=== PATIENT | female | born 1990 | race African-American/Black ===

== ENCOUNTER 2016-12-07 11:20 | Inpatient (IN) | payer MEDICAID ==
[2016-12-07] MEDS ORDERED: Sodium Chloride 0.9% 10 ML Syringe FLUSH PRN (19:33)
[2016-12-07] MEDS ORDERED: Zolpidem 5 MG Tab PO PRN (19:33)
[2016-12-07] MEDS ORDERED: Nalbuphine 20 MG/1 ML Amp IVPUSH PRN (19:33)
[2016-12-07] MEDS ORDERED: Ondansetron 4 MG/2 ML SDV IVPUSH PRN (19:33)
[2016-12-07] MEDS ORDERED: Oxytocin/Lactated Ringers 10 UNIT/1,000 ML BAG IV SCH ×2 (19:45)
[2016-12-07] MEDS ORDERED: Penicillin G Potassium 5 MILLUNITS in Sodium Chloride 0.9% 100 ML IV SCH (19:45)
[2016-12-07] MEDS ORDERED: Misoprostol 25 MCG (1/4 of 100 MCG) Tab ONE (20:50)
[2016-12-07] MEDS: Misoprostol 100 MCG Tab VAG PRN (20:59)
--- NOTE | 2016-12-07 21:25 | PCM.LDHP ---
L&D History of Present Illness - General Date of Service: 12/07/16 Admit Problem/Dx: Patient Status Order with Admit Dx/Problem 12/07/16 19:34 Patient Status [ADT] Routine Admission Diagnosis/Problem Admission Diagnosis/Problem Normal Source of Information: Patient History Limitations: Reports: No Limitations - History of Present Illness Introduction:: Patient is a 26-year-old at 37-4/7 weeks who presents for induction of labor. Had called in to clinic earlier today noting complaints of itching on her soles and palms. This has apparently been present for the last 2 weeks, but patient had not thought anything much of it. Had brought it up to her mother who notified her that she should discuss it with her physician. I called patient earlier this evening and discussed laboratory testing for cholestasis of has a turn around time of about 6 days. If patient is positive recommendations are for delivery between 36 and 37 weeks. As she is already 37-1/2 weeks at this current time and given the risks of IUFD with this underlying diagnosis felt that it was most appropriate to present for induction. She agrees with this discussion. She is doing well currently other than she is somewhat nervous for the induction process. Getting good movement from baby. No other concerns. - Related Data Allergies/Adverse Reactions: Allergies Allergy/AdvReac Type Severity Reaction Status Date / Time codeine Allergy Anaphylactic Verified 10/29/16 21:18 Shock hydrocodone Allergy Anaphylactic Verified 10/29/16 21:18 Shock Past Medical History Gastrointestinal History: Reports: GERD MANAGER CONTENT History: Reports: , Spontaneous : 5 Para: 0 LMP (Approximate): Neurological History: Reports: Migraines - Past Surgical History Female Surgical History: Reports: D&C Social & Family History - Tobacco Use Smoking Status *Q: Former Smoker - Alcohol Use Alcohol Use History: No - Recreational Drug Use Drug Use in Last 12 Months: Yes Recreational Drug Type: Reports: Marijuana/Hashish (Last use 05/2016) H&P Review of Systems - Review of Systems: Review Of Systems: See Below General: Reports: No Symptoms Pulmonary: Reports: No Symptoms Cardiovascular: Reports: No Symptoms Gastrointestinal: Reports: No Symptoms Genitourinary: Reports: No Symptoms Musculoskeletal: Reports: No Symptoms Skin: Reports: Pruritis Psychiatric: Reports: No Symptoms Neurological: Reports: No Symptoms L&D Exam - Exam Exam: See Below - Vital Signs Weight: 91.172 kg - OB Specific Contraction Intensity: Irritability Movement: Active Heart Tones: Present Heart Tones per Min: 140 Heart Rate (FHR) Variability: Moderate (6-25 bmp) Presentation: Vertex - Ye Score Ye Score Cervix Position: Posterior Ye Score Consistency: Soft Ye Score Effacement: 31-50% Ye Score Dilation: Closed (0.5 cm) Ye Score Infant's Station: -2 Ye Score Total: 4 - Exam General: Alert, Oriented, Cooperative Lungs: Clear to Auscultation, Normal Respiratory Effort Cardiovascular: Regular Rate, Regular Rhythm GI/Abdominal Exam: Soft, Non-Tender Rectal Exam: Normal Exam Genitourinary: Normal external exam Extremities: Normal Inspection Skin: Warm, Dry, Intact - Patient Data Lab Results Last 24 hrs: Laboratory Results - last 24 hr 12/07/16 12/07/16 Range/Units 20:05 20:05 WBC 9.87 (3.98-10.04) K/mm3 RBC 3.30 L (3.98-5.22) M/mm3 Hgb 10.0 L (11.2-15.7) gm/L Hct 29.7 L (34.1-44.9) % MCV 90.0 (79.4-94.8) fl MCH 30.3 (25.6-32.2) pg MCHC 33.7 (32.2-35.5) g/dl RDW Std Deviation 44.0 (36.4-46.3) fL Plt Count 287 (182-369) K/mm3 MPV 9.9 (9.4-12.3) fl Blood Type O POSITIVE Gel Antibody Screen Negative Result Diagrams: 12/07/16 20:05 - Problem List (1) 37 weeks gestation of SNOMED Code(s): 15657526 ICD Code: Z3A.37 - 37 WEEKS GESTATION OF Status: Acute Current Visit: Yes (2) Solar pruritus SNOMED Code(s): 517289550 ICD Code: L29.9 - PRURITUS, UNSPECIFIED Status: Acute Current Visit: Yes (3) Palmar pruritus SNOMED Code(s): 862434488 ICD Code: L29.8 - OTHER PRURITUS Status: Acute Current Visit: Yes (4) GBS (group B Streptococcus carrier), +RV culture, currently SNOMED Code(s): 70981792 ICD Code: O99.820 - STREPTOCOCCUS B CARRIER STATE COMPLICATING Status: Acute Current Visit: Yes Problem List Initiated/Reviewed/Updated: Yes Orders Last 24hrs: Active Orders 24 hr Category Date Time Status Patient Status [ADT] Routine ADT 12/07/16 19:34 Active Communication Order [RC] ASDIRECTED Care 12/07/16 19:33 Active Communication Order [RC] ASDIRECTED Care 12/07/16 19:33 Active Communication Order [RC] ASDIRECTED Care 12/07/16 19:33 Active Communication Order [RC] ASDIRECTED Care 12/07/16 20:18 Active Heart Tones [RC] ASDIRECTED Care 12/07/16 19:34 Active Monitoring [RC] INTERMITTENT Care 12/07/16 19:33 Active Notify Provider [RC] ASDIRECTED Care 12/07/16 19:33 Active Notify Provider [RC] PRN Care 12/07/16 19:33 Active Peripheral IV Care [RC] . DIRECTED Care 12/07/16 19:34 Active Up ad Ksenia [RC] ASDIRECTED Care 12/07/16 19:33 Active Vaginal Exam [RC] ASDIRECTED Care 12/07/16 19:33 Active Vital Signs [RC] ASDIRECTED Care 12/07/16 19:33 Active Regular Diet [DIET] Diet 12/07/16 Dinner Active BILE ACIDS, FRACTIONATED [REF] Routine Lab 12/08/16 04:00 Ordered PATIENT RETYPE [BBK] Routine Lab 12/07/16 20:05 Results TYPE AND SCREEN [BBK] Routine Lab 12/07/16 20:05 Results Lactated Ringers [Ringers, Lactated] 1,000 ml Med 12/07/16 19:45 Active IV ASDIRECTED Misoprostol [Cytotec] Med 12/07/16 19:33 Active 25 mcg VAG Q4H PRN Nalbuphine [Nubain] Med 12/07/16 19:33 Active 10 mg IVPUSH Q2H PRN Ondansetron [Zofran] Med 12/07/16 19:33 Active 4 mg IVPUSH Q4H PRN Oxytocin/Lactated Ringers [Pitocin in LR 10 Units/1,000 Med 12/07/16 19:45 Active ML] 10 unit in 1,000 ml IV .CONTINUOUS Oxytocin/Lactated Ringers [Pitocin in LR 10 Units/1,000 Med 12/07/16 19:45 Active ML] 10 unit in 1,000 ml IV TITRATE Penicillin G Potassium [Pfizerpen] 2.5 millunits Med 12/08/16 00:00 Active Sodium Chloride 0.9% [Normal Saline] 100 ml IV Q4H Penicillin G Potassium [Pfizerpen] 5 millunits Med 12/07/16 19:45 Active Sodium Chloride 0.9% [Normal Saline] 100 ml IV ONETIME Sodium Chloride 0.9% [Saline Flush] Med 12/07/16 19:33 Active 10 ml FLUSH ASDIRECTED PRN Zolpidem [Ambien] Med 12/07/16 19:33 Active 5 mg PO BEDTIME PRN Electronic Heart Tones Ext w TOCO [WOMSER] Oth 12/07/16 19:33 Ordered Routine Electronic Heart Tones Internal [WOMSER] Per Unit Ot 12/07/16 19:33 Ordered Routine Peripheral IV Insertion Adult [OM.PC] Routine Oth 12/07/16 19:33 Ordered Resuscitation Status Routine Resus Stat 12/07/16 19:33 Ordered Medication Orders Lactated Ringer's (Ringers, Lactated) 1,000 mls @ 40 mls/hr IV ASDIRECTED JORDEN Oxytocin/Lactated Ringer's (Pitocin In Lr 10 Units/1,000 Ml) 10 unit in 1,000 mls @ 12 mls/hr IV TITRATE JORDEN; 2 MUNITS/MIN PRN Reason: Protocol Oxytocin/Lactated Ringer's (Pitocin In Lr 10 Units/1,000 Ml) 10 unit in 1,000 mls @ 500 mls/hr IV .CONTINUOUS JORDEN Penicillin G Potassium 5 (millunits/ Sodium Chloride) 100 mls @ 55 mls/hr IV ONETIME JORDEN Penicillin G Potassium 2.5 (millunits/ Sodium Chloride) 100 mls @ 55 mls/hr IV Q4H JORDEN Misoprostol (Cytotec) 25 mcg VAG Q4H PRN PRN Reason: cervical ripening Last Admin: 12/07/16 20:59 Dose: 25 mcg Nalbuphine HCl (Nubain) 10 mg IVPUSH Q2H PRN PRN Reason: Pain (moderate 4-6) Ondansetron HCl (Zofran) 4 mg IVPUSH Q4H PRN PRN Reason: Nausea/Vomiting Sodium Chloride (Saline Flush) 10 ml FLUSH ASDIRECTED PRN PRN Reason: Keep Vein Open Zolpidem Tartrate (Ambien) 5 mg PO BEDTIME PRN PRN Reason: Insomnia Assessment/Plan Comment:: Patient is a 26-year-old at 37-4/7 weeks gestation who presents for induction of labor for concerns of possible underlying cholestasis of . Will order bile acids tests to be drawn in the morning, fasting. We 'll start induction process tonight. Cytotec to be placed. Reyes bulb and/or Pitocin when able. GBS positive, will need antibiotic prophylaxis later on in induction process. Continuous monitoring. Pain management per patient preference. Anticipate .
[2016-12-08] MEDS ORDERED: Misoprostol 25 MCG (1/4 of 100 MCG) Tab ONE ×2 (01:02→05:55)
[2016-12-08] MEDS: Misoprostol 100 MCG Tab VAG PRN ×2 (01:13→06:03)
--- NOTE | 2016-12-08 11:39 | PCM.PNLD ---
Labor Progress Note - VS & Meds Vital Signs: Last Vital Signs Temp 36.9 C 12/07/16 20:16 Pulse 78 12/08/16 08:02 Resp 13 12/07/16 20:16 BP 119/70 12/08/16 06:00 Pulse Ox Active Medications: Current Medications Lactated Ringer's (Ringers, Lactated) 1,000 mls @ 40 mls/hr IV ASDIRECTED JORDEN Oxytocin/Lactated Ringer's (Pitocin In Lr 10 Units/1,000 Ml) 10 unit in 1,000 mls @ 12 mls/hr IV TITRATE JORDEN; 2 MUNITS/MIN PRN Reason: Protocol Oxytocin/Lactated Ringer's (Pitocin In Lr 10 Units/1,000 Ml) 10 unit in 1,000 mls @ 500 mls/hr IV .CONTINUOUS JORDEN Penicillin G Potassium 2.5 (millunits/ Sodium Chloride) 100 mls @ 55 mls/hr IV Q4H JORDEN Nalbuphine HCl (Nubain) 10 mg IVPUSH Q2H PRN PRN Reason: Pain (moderate 4-6) Ondansetron HCl (Zofran) 4 mg IVPUSH Q4H PRN PRN Reason: Nausea/Vomiting Sodium Chloride (Saline Flush) 10 ml FLUSH ASDIRECTED PRN PRN Reason: Keep Vein Open Zolpidem Tartrate (Ambien) 5 mg PO BEDTIME PRN PRN Reason: Insomnia Last Admin: 12/08/16 01:19 Dose: 5 mg Discontinued Medications Penicillin G Potassium 5 (millunits/ Sodium Chloride) 100 mls @ 55 mls/hr IV ONETIME JORDEN Misoprostol (Cytotec) 25 mcg VAG Q4H PRN PRN Reason: cervical ripening Last Admin: 12/08/16 06:03 Dose: 25 mcg Misoprostol (Cytotec) Confirm Administered Dose 25 mcg .ROUTE .STK-MED ONE Stop: 12/07/16 20:51 Last Admin: 12/08/16 01:19 Dose: Not Given Misoprostol (Cytotec) Confirm Administered Dose 25 mcg .ROUTE .STK-MED ONE Stop: 12/08/16 01:03 Last Admin: 12/08/16 01:19 Dose: Not Given Misoprostol (Cytotec) Confirm Administered Dose 25 mcg .ROUTE .STK-MED ONE Stop: 12/08/16 05:56 Last Admin: 12/08/16 06:03 Dose: Not Given - Uterine Contractions Uterine Monitoring Mode: External [place] Contraction Intensity: Mild to Moderate Uterine Resting Tone: Soft - Monitoring Monitor Mode: External Ultrasound Heart Rate (FHR) Baseline: 145 Heart Rate (FHR) Variability: Moderate (6-25 bmp) Accelerations: Present, 15x15 Decelerations: None Strip Review: Category I - Vaginal Exam Dilation (cm): 1-2 Effacement (Percent): 60 Station: -2 Cervical Position: Posterior - Labor Progress (Free Text) Labor Progress: Patient doing well. Oconnor bulb came out at 1045. Now more like 1-2 cm dilated. Slightly less than expected with oconnor coming out, but cervix very soft. Did offer to place oconnor again, but patient declines. Vipin every 2-3 minutes and feeling uncomfortable. Will hold on pitocin for now, but start GBS prophylaxis. Can initiation pitocin later if contractions space or weaken
[2016-12-08] MEDS ORDERED: Bupivacaine 0.25% 10 ML SDV ONE ×2 (12:00)
[2016-12-08] MEDS: Lactated Ringers 1,000 ML IV SCH ×4 (12:22→21:40)
[2016-12-08] MEDS: Penicillin G Potassium 2.5 MILLUNITS in Sodium Chloride 0.9% 100 ML IV SCH ×5 (12:22→20:01)
--- NOTE | 2016-12-08 12:41 | PCM.PNLD ---
Labor Progress Note - VS & Meds Vital Signs: Last Vital Signs Temp 36.9 C 12/07/16 20:16 Pulse 78 12/08/16 08:02 Resp 13 12/07/16 20:16 BP 119/70 12/08/16 06:00 Pulse Ox Active Medications: Current Medications Lactated Ringer's (Ringers, Lactated) 1,000 mls @ 40 mls/hr IV ASDIRECTED JORDEN Last Admin: 12/08/16 12:22 Dose: 40 mls/hr Oxytocin/Lactated Ringer's (Pitocin In Lr 10 Units/1,000 Ml) 10 unit in 1,000 mls @ 12 mls/hr IV TITRATE JORDEN; 2 MUNITS/MIN PRN Reason: Protocol Last Admin: 12/08/16 12:22 Dose: 1 munits/min, 6 mls/hr Oxytocin/Lactated Ringer's (Pitocin In Lr 10 Units/1,000 Ml) 10 unit in 1,000 mls @ 500 mls/hr IV .CONTINUOUS JORDEN Penicillin G Potassium 2.5 (millunits/ Sodium Chloride) 100 mls @ 55 mls/hr IV Q4H JORDEN Last Admin: 12/08/16 12:32 Dose: Not Given Penicillin G Potassium 2.5 (millunits/ Sodium Chloride) 100 mls @ 100 mls/hr IV Q1H JORDEN Stop: 12/08/16 13:59 Last Admin: 12/08/16 12:22 Dose: 100 mls/hr Nalbuphine HCl (Nubain) 10 mg IVPUSH Q2H PRN PRN Reason: Pain (moderate 4-6) Ondansetron HCl (Zofran) 4 mg IVPUSH Q4H PRN PRN Reason: Nausea/Vomiting Sodium Chloride (Saline Flush) 10 ml FLUSH ASDIRECTED PRN PRN Reason: Keep Vein Open Zolpidem Tartrate (Ambien) 5 mg PO BEDTIME PRN PRN Reason: Insomnia Last Admin: 12/08/16 01:19 Dose: 5 mg Discontinued Medications Penicillin G Potassium 5 (millunits/ Sodium Chloride) 100 mls @ 55 mls/hr IV ONETIME JORDEN Misoprostol (Cytotec) 25 mcg VAG Q4H PRN PRN Reason: cervical ripening Last Admin: 12/08/16 06:03 Dose: 25 mcg Misoprostol (Cytotec) Confirm Administered Dose 25 mcg .ROUTE .STK-MED ONE Stop: 12/07/16 20:51 Last Admin: 12/08/16 01:19 Dose: Not Given Misoprostol (Cytotec) Confirm Administered Dose 25 mcg .ROUTE .STK-MED ONE Stop: 12/08/16 01:03 Last Admin: 12/08/16 01:19 Dose: Not Given Misoprostol (Cytotec) Confirm Administered Dose 25 mcg .ROUTE .STK-MED ONE Stop: 12/08/16 05:56 Last Admin: 12/08/16 06:03 Dose: Not Given - Uterine Contractions Uterine Monitoring Mode: External [place] Contraction Intensity: Mild Uterine Resting Tone: Soft - Monitoring Monitor Mode: External Ultrasound Heart Rate (FHR) Baseline: 140 Heart Rate (FHR) Variability: Moderate (6-25 bmp) Accelerations: Present, 15x15 Decelerations: None Strip Review: Category I - Vaginal Exam Dilation (cm): 1 Effacement (Percent): 40 Station: -2 Cervical Position: Posterior - Labor Progress (Free Text) Labor Progress: Patient doing well. S/p 3 doses of cytotec. Last about 1 hr ago. Reyes bulb placed to aid in induction process. Likely transition to pitocin in 3 hours.
[2016-12-08] MEDS ORDERED: Ondansetron 4 MG/2 ML SDV IVPUSH PRN (13:56)
[2016-12-08] MEDS ORDERED: ePHEDrine 50 MG/ML SDV IVPUSH PRN (13:56)
[2016-12-08] MEDS ORDERED: Lidocaine 1.5% with EPINEPHrine 1:200,000 5 ML Amp ONE (14:00)
[2016-12-08] MEDS ORDERED: Lidocaine 1% 10 ML MDV ONE (14:00)
--- NOTE | 2016-12-08 14:03 | PCM.PREANE ---
Preanesthetic Assessment - Anesthesia/Transfusion/Family Hx Anesthesia History: No Prior Anesthesia Family History of Anesthesia Reaction: No Transfusion History: No Prior Transfusion(s) Intubation History: Unknown - Review of Systems General: No Symptoms Pulmonary: No Symptoms Cardiovascular: No Symptoms Gastrointestinal: No Symptoms (GERD) Neurological: No Symptoms Other: Reports: None - Physical Assessment NPO Status Date: 12/08/16 NPO Status Time: 09:00 Pulse: 78 O2 Sat by Pulse Oximetry: 99 Respiratory Rate: 13 Blood Pressure: 119/70 Temperature: 2.7 C Vital Signs: Last Vital Signs Temp 36.9 C 12/07/16 20:16 Pulse 78 12/08/16 08:02 Resp 13 12/07/16 20:16 BP 119/70 12/08/16 06:00 Pulse Ox Height: 1.68 m Weight: 91.172 kg ASA Class: 2 Mental Status: Alert & Oriented x3 Airway Class: Mallampati = 3 Dentition: Reports: Normal Dentition, Caries Thyro-Mental Finger Breadths: 3 Mouth Opening Finger Breadths: 3 Lungs: Clear to Auscultation, Normal Respiratory Effort Cardiovascular: Regular Rate, Regular Rhythm, No Murmurs - Lab Values: Laboratory Last Values WBC 9.87 K/mm3 (3.98-10.04) 12/07/16 20:05 RBC 3.30 M/mm3 (3.98-5.22) L 12/07/16 20:05 Hgb 10.0 gm/L (11.2-15.7) L 12/07/16 20:05 Hct 29.7 % (34.1-44.9) L 12/07/16 20:05 MCV 90.0 fl (79.4-94.8) 12/07/16 20:05 MCH 30.3 pg (25.6-32.2) 12/07/16 20:05 MCHC 33.7 g/dl (32.2-35.5) 12/07/16 20:05 RDW Std Deviation 44.0 fL (36.4-46.3) 12/07/16 20:05 Plt Count 287 K/mm3 (182-369) 12/07/16 20:05 MPV 9.9 fl (9.4-12.3) 12/07/16 20:05 Blood Type O POSITIVE 12/07/16 20:05 Gel Antibody Screen Negative 12/07/16 20:05 Above labs reviewed and noted and within acceptable ranges to proceed with epidural. - Allergies Allergies/Adverse Reactions: Allergies Allergy/AdvReac Type Severity Reaction Status Date / Time codeine Allergy Anaphylactic Verified 10/29/16 21:18 Shock hydrocodone Allergy Anaphylactic Verified 10/29/16 21:18 Shock - Anesthesia Plan Pre-Op Medication Ordered: None - Acknowledgements Anesthesia Type Planned: Epidural Pt an Appropriate Candidate for the Planned Anesthesia: Yes Alternatives and Risks of Anesthesia Discussed w Pt/Guardian: Yes Pt/Guardian Understands and Agrees with Anesthesia Plan: Yes PreAnesthesia Questionnaire HEENT History: Reports: None Cardiovascular History: Reports: None Respiratory History: Reports: None Gastrointestinal History: Reports: GERD Other Gastrointestinal History: Hx of taking Prilosec; currently not taking Genitourinary History: Reports: None WILL CALL CLERK History: Reports: , Spontaneous Other OB/BYN History: Hx SAB x 4 Musculoskeletal History: Reports: None Neurological History: Reports: Migraines Other Neuro History: Hx freq migraines prior to , none in past year Psychiatric History: Reports: Anxiety, Depression Other Psychiatric History: Hx of depression and anxiety in past--none during this , no medications for such recently Endocrine/Metabolic History: Reports: None Hematologic History: Reports: None Immunologic History: Reports: None Oncologic (Cancer) History: Reports: None Dermatologic History: Reports: None - Infectious Disease History Infectious Disease History: Reports: None - Past Surgical History Female Surgical History: Reports: D&C - SUBSTANCE USE Smoking Status *Q: Former Smoker Tobacco Use Within Last Twelve Months: Cigarettes Second Hand Smoke Exposure: No Recreational Drug Use History: Yes Recreational Drug Type: Reports: Marijuana/Hashish (Last use 05/2016) Recreational Drug Last Use: 04/2016 - CURRENT (IN HOUSE) MEDS Current Meds: Current Medications Lactated Ringer's (Ringers, Lactated) 1,000 mls @ 40 mls/hr IV ASDIRECTED JORDEN Last Admin: 12/08/16 12:22 Dose: 40 mls/hr Oxytocin/Lactated Ringer's (Pitocin In Lr 10 Units/1,000 Ml) 10 unit in 1,000 mls @ 12 mls/hr IV TITRATE JORDEN; 2 MUNITS/MIN PRN Reason: Protocol Last Admin: 12/08/16 12:22 Dose: 1 munits/min, 6 mls/hr Oxytocin/Lactated Ringer's (Pitocin In Lr 10 Units/1,000 Ml) 10 unit in 1,000 mls @ 500 mls/hr IV .CONTINUOUS REPLACED BY [facility] Penicillin G Potassium 2.5 (millunits/ Sodium Chloride) 100 mls @ 55 mls/hr IV Q4H REPLACED BY [facility] Last Admin: 12/08/16 12:32 Dose: Not Given Penicillin G Potassium 2.5 (millunits/ Sodium Chloride) 100 mls @ 100 mls/hr IV Q1H REPLACED BY [facility] Stop: 12/08/16 13:59 Last Admin: 12/08/16 13:17 Dose: 100 mls/hr Nalbuphine HCl (Nubain) 10 mg IVPUSH Q2H PRN PRN Reason: Pain (moderate 4-6) Ondansetron HCl (Zofran) 4 mg IVPUSH Q4H PRN PRN Reason: Nausea/Vomiting Sodium Chloride (Saline Flush) 10 ml FLUSH ASDIRECTED PRN PRN Reason: Keep Vein Open Zolpidem Tartrate (Ambien) 5 mg PO BEDTIME PRN PRN Reason: Insomnia Last Admin: 12/08/16 01:19 Dose: 5 mg Discontinued Medications Penicillin G Potassium 5 (millunits/ Sodium Chloride) 100 mls @ 55 mls/hr IV ONETIME REPLACED BY [facility] Misoprostol (Cytotec) 25 mcg VAG Q4H PRN PRN Reason: cervical ripening Last Admin: 12/08/16 06:03 Dose: 25 mcg Misoprostol (Cytotec) Confirm Administered Dose 25 mcg .ROUTE .STK-MED ONE Stop: 12/07/16 20:51 Last Admin: 12/08/16 01:19 Dose: Not Given Misoprostol (Cytotec) Confirm Administered Dose 25 mcg .ROUTE .STK-MED ONE Stop: 12/08/16 01:03 Last Admin: 12/08/16 01:19 Dose: Not Given Misoprostol (Cytotec) Confirm Administered Dose 25 mcg .ROUTE .STK-MED ONE Stop: 12/08/16 05:56 Last Admin: 12/08/16 06:03 Dose: Not Given
[2016-12-08] MEDS: Bupivacaine/fentaNYL/NS 100 ML Bag EPIDUR SCH (19:10)
[2016-12-08] MEDS: fentaNYL 100 MCG/2 ML SDV EPIDUR PRN (19:10)
[2016-12-08] MEDS ORDERED: Penicillin G Potassium 5,000,000 Unit Vial ONE (19:54)
--- NOTE | 2016-12-08 20:02 | PCM.PNLD ---
Labor Progress Note - VS & Meds Vital Signs: Last Vital Signs Temp 2.7 C L 12/08/16 14:09 Pulse 75 12/08/16 15:31 Resp 13 12/08/16 14:09 BP 130/78 12/08/16 15:31 Pulse Ox 99 12/08/16 14:09 Active Medications: Current Medications Ephedrine Sulfate (Ephedrine Sulfate) 5 mg IVPUSH ASDIRECTED PRN PRN Reason: Hypotension Fentanyl (Sublimaze) 100 mcg EPIDUR Q3H PRN PRN Reason: Pain Last Admin: 12/08/16 19:10 Dose: 100 mcg Fentanyl/Bupivacaine HCl (Fentanyl/Bupivacaine/Ns 2 Mcg-0.125% 100 Ml) 100 ml EPIDUR ASDIRECTED JORDEN Last Admin: 12/08/16 19:10 Dose: 100 ml Lactated Ringer's (Ringers, Lactated) 1,000 mls @ 40 mls/hr IV ASDIRECTED JORDEN Last Admin: 12/08/16 19:31 Dose: 40 mls/hr Oxytocin/Lactated Ringer's (Pitocin In Lr 10 Units/1,000 Ml) 10 unit in 1,000 mls @ 12 mls/hr IV TITRATE JORDEN; 2 MUNITS/MIN PRN Reason: Protocol Last Titration: 12/08/16 19:42 Dose: 8 munits/min, 48 mls/hr Oxytocin/Lactated Ringer's (Pitocin In Lr 10 Units/1,000 Ml) 10 unit in 1,000 mls @ 500 mls/hr IV .CONTINUOUS JORDEN Penicillin G Potassium 2.5 (millunits/ Sodium Chloride) 100 mls @ 55 mls/hr IV Q4H JORDEN Last Admin: 12/08/16 15:57 Dose: 100 mls/hr Nalbuphine HCl (Nubain) 10 mg IVPUSH Q2H PRN PRN Reason: Pain (moderate 4-6) Ondansetron HCl (Zofran) 4 mg IVPUSH Q4H PRN PRN Reason: Nausea/Vomiting Ondansetron HCl (Zofran) 4 mg IVPUSH ONETIME PRN PRN Reason: Nausea/Vomiting Sodium Chloride (Saline Flush) 10 ml FLUSH ASDIRECTED PRN PRN Reason: Keep Vein Open Zolpidem Tartrate (Ambien) 5 mg PO BEDTIME PRN PRN Reason: Insomnia Last Admin: 12/08/16 01:19 Dose: 5 mg Discontinued Medications Penicillin G Potassium 5 (millunits/ Sodium Chloride) 100 mls @ 55 mls/hr IV ONETIME JORDEN Penicillin G Potassium 2.5 (millunits/ Sodium Chloride) 100 mls @ 100 mls/hr IV Q1H JORDEN Stop: 12/08/16 13:59 Last Admin: 12/08/16 13:17 Dose: 100 mls/hr Misoprostol (Cytotec) 25 mcg VAG Q4H PRN PRN Reason: cervical ripening Last Admin: 12/08/16 06:03 Dose: 25 mcg Misoprostol (Cytotec) Confirm Administered Dose 25 mcg .ROUTE .STK-MED ONE Stop: 12/07/16 20:51 Last Admin: 12/08/16 01:19 Dose: Not Given Misoprostol (Cytotec) Confirm Administered Dose 25 mcg .ROUTE .STK-MED ONE Stop: 12/08/16 01:03 Last Admin: 12/08/16 01:19 Dose: Not Given Misoprostol (Cytotec) Confirm Administered Dose 25 mcg .ROUTE .STK-MED ONE Stop: 12/08/16 05:56 Last Admin: 12/08/16 06:03 Dose: Not Given Penicillin G Potassium (Pfizerpen) Confirm Administered Dose 5 millunits .ROUTE .STK-MED ONE Stop: 12/08/16 19:55 - Uterine Contractions Uterine Monitoring Mode: External [place] Contraction Intensity: Moderate to Strong Uterine Resting Tone: Soft - Monitoring Monitor Mode: External Ultrasound Heart Rate (FHR) Baseline: 150 Heart Rate (FHR) Variability: Moderate (6-25 bmp) Accelerations: Present, 15x15 Decelerations: None, Late, Variable, Intermittent (<50% x 20 min) Strip Review: Category II - Vaginal Exam Dilation (cm): 2 Effacement (Percent): 60 Station: -2 Cervical Position: Posterior - Labor Progress (Free Text) Labor Progress: Patient just received epidural. Run of late decelerations which resolved with dropping pitocin to 8 (from 11) and also with position changes. SVE done and still fairly similar to last exam. Discussion had with patient and she agrees to 2nd placement of oconnor bulb. Otherwise will continue to increase pitocin per protocol. AROM if/when able. Continue PCN for GBS prophylaxis
[2016-12-09] MEDS: Penicillin G Potassium 2.5 MILLUNITS in Sodium Chloride 0.9% 100 ML IV SCH ×2 (00:04→04:17)
[2016-12-09] MEDS: Bupivacaine/fentaNYL/NS 100 ML Bag EPIDUR SCH ×2 (02:50→09:24)
[2016-12-09] MEDS: Lactated Ringers 1,000 ML IV SCH (03:22)
--- NOTE | 2016-12-09 04:29 | PCM.PNLD ---
Labor Progress Note - VS & Meds Vital Signs: Last Vital Signs Temp 2.7 C L 12/08/16 14:09 Pulse 75 12/08/16 15:31 Resp 13 12/08/16 14:09 BP 130/78 12/08/16 15:31 Pulse Ox 99 12/08/16 14:09 Active Medications: Current Medications Ephedrine Sulfate (Ephedrine Sulfate) 5 mg IVPUSH ASDIRECTED PRN PRN Reason: Hypotension Fentanyl (Sublimaze) 100 mcg EPIDUR Q3H PRN PRN Reason: Pain Last Admin: 12/08/16 19:10 Dose: 100 mcg Fentanyl/Bupivacaine HCl (Fentanyl/Bupivacaine/Ns 2 Mcg-0.125% 100 Ml) 100 ml EPIDUR ASDIRECTED JORDEN Last Admin: 12/09/16 02:50 Dose: 100 ml Lactated Ringer's (Ringers, Lactated) 1,000 mls @ 40 mls/hr IV ASDIRECTED JORDEN Last Admin: 12/09/16 03:22 Dose: 40 mls/hr Oxytocin/Lactated Ringer's (Pitocin In Lr 10 Units/1,000 Ml) 10 unit in 1,000 mls @ 12 mls/hr IV TITRATE JORDEN; 2 MUNITS/MIN PRN Reason: Protocol Last Titration: 12/09/16 03:20 Dose: 7 munits/min, 42 mls/hr Oxytocin/Lactated Ringer's (Pitocin In Lr 10 Units/1,000 Ml) 10 unit in 1,000 mls @ 500 mls/hr IV .CONTINUOUS JORDEN Penicillin G Potassium 2.5 (millunits/ Sodium Chloride) 100 mls @ 55 mls/hr IV Q4H JORDEN Last Admin: 12/09/16 04:17 Dose: 100 mls/hr Nalbuphine HCl (Nubain) 10 mg IVPUSH Q2H PRN PRN Reason: Pain (moderate 4-6) Ondansetron HCl (Zofran) 4 mg IVPUSH Q4H PRN PRN Reason: Nausea/Vomiting Ondansetron HCl (Zofran) 4 mg IVPUSH ONETIME PRN PRN Reason: Nausea/Vomiting Sodium Chloride (Saline Flush) 10 ml FLUSH ASDIRECTED PRN PRN Reason: Keep Vein Open Zolpidem Tartrate (Ambien) 5 mg PO BEDTIME PRN PRN Reason: Insomnia Last Admin: 12/08/16 01:19 Dose: 5 mg Discontinued Medications Penicillin G Potassium 5 (millunits/ Sodium Chloride) 100 mls @ 55 mls/hr IV ONETIME JORDEN Penicillin G Potassium 2.5 (millunits/ Sodium Chloride) 100 mls @ 100 mls/hr IV Q1H JORDEN Stop: 12/08/16 13:59 Last Admin: 12/08/16 13:17 Dose: 100 mls/hr Misoprostol (Cytotec) 25 mcg VAG Q4H PRN PRN Reason: cervical ripening Last Admin: 12/08/16 06:03 Dose: 25 mcg Misoprostol (Cytotec) Confirm Administered Dose 25 mcg .ROUTE .STK-MED ONE Stop: 12/07/16 20:51 Last Admin: 12/08/16 01:19 Dose: Not Given Misoprostol (Cytotec) Confirm Administered Dose 25 mcg .ROUTE .STK-MED ONE Stop: 12/08/16 01:03 Last Admin: 12/08/16 01:19 Dose: Not Given Misoprostol (Cytotec) Confirm Administered Dose 25 mcg .ROUTE .STK-MED ONE Stop: 12/08/16 05:56 Last Admin: 12/08/16 06:03 Dose: Not Given Penicillin G Potassium (Pfizerpen) Confirm Administered Dose 5 millunits .ROUTE .STK-MED ONE Stop: 12/08/16 19:55 - Uterine Contractions Uterine Monitoring Mode: External [place] Contraction Intensity: Moderate to Strong Uterine Resting Tone: Soft - Monitoring Monitor Mode: External Ultrasound Heart Rate (FHR) Baseline: 155 Heart Rate (FHR) Variability: Moderate (6-25 bmp) Accelerations: Present, 15x15 Decelerations: Late, Intermittent (<50% x 20 min) Strip Review: Category II - Vaginal Exam Dilation (cm): 5 Effacement (Percent): 60 Station: -2 Cervical Position: Midposition - Labor Progress (Free Text) Labor Progress: Patient doing well. Pitocin was off for a period last night after epidural due to run of late decelerations. Restarted, but increased slowly again due to similar concerns of intermittent runs of late decelerations. Currently at 7. Currently FHR is with moderate variability, + accelerations, no decelerations. AROM performed with release of clear fluid. Continue present management.
--- NOTE | 2016-12-09 06:17 | PCM.SN ---
- Free Text/Narrative Note: Called by nursing at 0549. Since about 0500 they have had increasing issues with late decelerations. Pitocin off. Through about 400 cc of a fluid bolus. I presented and checked patient and she is about 5-6 cm, 80%, -1 station, anterior. Patient also with increasing pain. Anesthesia here now addressing that issue. Discussed with patient will let anesthesia address epidural concerns and monitor baby through that time. Continue fluid bolus. If continued concerns may need to proceed with PLTCS due to status. She agrees. Natasha Guidry MD
[2016-12-09] MEDS: fentaNYL 100 MCG/2 ML SDV EPIDUR PRN (06:19)
[2016-12-09] MEDS ORDERED: Ampicillin 2 GM in Sodium Chloride 0.9% 100 ML IV SCH (07:00)
[2016-12-09] MEDS ORDERED: Acetaminophen 325 MG Tab PO ONE (07:20)
[2016-12-09] MEDS ORDERED: GENTAMICIN IV ONE ×2 (07:45)
[2016-12-09] MEDS ORDERED: WATER IV ONE ×2 (07:45)
[2016-12-09] MEDS ORDERED: DEXTROSE 5% IV ONE ×2 (07:45)
--- NOTE | 2016-12-09 08:13 | PCM.SN ---
- Free Text/Narrative Note: 0811 Have been present on unit assessing patient. At ~0700 had a temperature of 100.2. Not technically fever, but given presence of tachycardia of 170 decision made to proceed with discontinuation of PCN and starting Amp, Gent. Also given dose of Tylenol. Since 0730 status reassuring. Right prior to this did have a deeper late/variable. Currently though baseline 165-170, moderate variability, + accelerations. Continue to assess closely. Natasha Guidry MD
--- NOTE | 2016-12-09 08:53 | PCM.SN ---
- Free Text/Narrative Note: 0850 Patient now with a prolonged deceleration for 2 minutes. Reviewed with patient that at this time there is not much more we can do for an intervention. Pitocin has been off since about 0500. Has received fluid boluses and multiple position changes. I am concerned that we do not have time to achieve complete dilation and also have a baby that tolerates labor. They express understanding of my concerns. They will let me call OR crew and get everything ready, but they want me to repeat an exam in 30 minutes. Do not want to say yes yet. Natasha Guidry MD
[2016-12-09] MEDS ORDERED: Clindamycin Phosphate 900 MG in Sodium Chloride 0.9% 100 ML IV ONE (08:55)
[2016-12-09] MEDS ORDERED: Citric Acid/Sodium Citrate Solution 30 ML Cup PO ONE (08:56)
[2016-12-09] MEDS ORDERED: Metoclopramide 10 MG/2 ML SDV IVPUSH ONE (08:56)
[2016-12-09] MEDS ORDERED: ceFAZolin 2 GM in Premix Bag 1 BAG IV ONE (08:56)
[2016-12-09] MEDS ORDERED: fentaNYL 100 MCG/2 ML SDV ONE (09:08)
--- NOTE | 2016-12-09 09:32 | PCM.SN ---
- Free Text/Narrative Note: 0930 Patient now 9 cm. Since last discussion there has been no late decelerations. Baseline has also come down to 165. Now again overall reassuring. OR is set up and anesthesia has interviewed patient. Discussion had about risks/benefits of continued monitoring vs proceeding with PLTCS. At this time patient prefers continued close monitoring. Will reassess in another 1 hour or so Natasha Guidry MD
[2016-12-09] MEDS ORDERED: ceFAZolin 1 GM Vial ONE (09:38)
[2016-12-09] MEDS ORDERED: Sodium Bicarbonate 8.4% 50 MEQ/50 ML SDV ONE (09:38)
[2016-12-09] MEDS ORDERED: Lidocaine 2% with EPINEPHrine 1:200,000 20 ML SDV ONE (09:38)
[2016-12-09] MEDS ORDERED: Propofol 200 MG/20 ML SDV ONE (09:39)
[2016-12-09] MEDS ORDERED: Morphine PF 10 MG/10 ML SDV ONE (09:41)
[2016-12-09] MEDS ORDERED: Ondansetron 4 MG/2 ML SDV ONE (09:42)
--- NOTE | 2016-12-09 10:23 | PCM.SN ---
- Free Text/Narrative Note: Called by Dr. Amaya to interview Jennifer regarding a possible Section. Reviewed her previous preoperative assessment completed for her epidural. No changes noted. Explained the anesthetic plan to use the epidural for the surgery. Her epidural is working well at this time. She is understands and has no further questions at this time. OR prepared and ready if decision is made to proceed with Section.
--- NOTE | 2016-12-09 11:43 | PCM.DEL ---
L & D Note - General Info Date of Service: 12/09/16 - Delivery Note Labor: Induced by ARM, Induced by Oxytocin Cervical Ripening Method: Balloon Device, Misoprostil Delivery Outcome: Livebirth Delivery Method: Spontaneous Vaginal Delivery-Single Infant Delivery Mode: Spontaneous Presentation: Right Occiput Anterior (EBONI) Nuchal Cord: None Anesthesia Type: Epidural Amniotic Fluid Description: Clear Episiotomy Type: None Laceration: 2nd Degree, Perineal Suture type: Vicryl Suture size: 2-0 Placenta: Intact, Spontaneous Cord: 3 Vessels Estimated Blood Loss: 300 Resuscitation Needed: Yes [place]: Bulb Syringe, Stimulated, Warmed, Williams Used Score 1 min: 8 Score 5 min: 9 Delivery Comments (Free Text/Narrative):: Patient found to be complete and began pushing. With maternal pushing effort head delivered in an EBONI presentation. No nuchal cord present. With gentle downward traction the shoulders and body delivered. placed on maternal abdomen. Cord clamped and cut. Cord blood obtained. Placenta allowed time to separate and then spontaneously expelled. Inspection of the perineum showed a 2nd degree laceration repaired with a 2-0 vicryl in the typical fashion. - Patient Data Vitals - Most Recent: Last Vital Signs Temp 37.9 C 12/09/16 07:30 Pulse 86 12/09/16 07:31 Resp 13 12/08/16 14:09 BP 114/55 L 12/09/16 07:31 Pulse Ox 100 12/09/16 06:30 Weight - Most Recent: 91.172 kg I&O - Last 24 Hours: Intake & Output 12/08/16 12/09/16 12/09/16 22:59 06:59 14:59 Intake Total 120 Balance 120 Med Orders - Current: Current Medications Ephedrine Sulfate (Ephedrine Sulfate) 5 mg IVPUSH ASDIRECTED PRN PRN Reason: Hypotension Fentanyl (Sublimaze) 100 mcg EPIDUR Q3H PRN PRN Reason: Pain Last Admin: 12/09/16 06:19 Dose: 100 mcg Fentanyl/Bupivacaine HCl (Fentanyl/Bupivacaine/Ns 2 Mcg-0.125% 100 Ml) 100 ml EPIDUR ASDIRECTED JORDEN Last Admin: 12/09/16 09:24 Dose: 100 ml Lactated Ringer's (Ringers, Lactated) 1,000 mls @ 40 mls/hr IV ASDIRECTED JORDEN Last Admin: 12/09/16 03:22 Dose: 40 mls/hr Oxytocin/Lactated Ringer's (Pitocin In Lr 10 Units/1,000 Ml) 10 unit in 1,000 mls @ 12 mls/hr IV TITRATE JORDEN; 2 MUNITS/MIN PRN Reason: Protocol Last Titration: 12/09/16 05:32 Dose: 0 munits/min, 0 mls/hr Oxytocin/Lactated Ringer's (Pitocin In Lr 10 Units/1,000 Ml) 10 unit in 1,000 mls @ 500 mls/hr IV .CONTINUOUS JORDEN Ampicillin Sodium 2 gm/ Sodium (Chloride) 100 mls @ 200 mls/hr IV Q6H JORDEN Last Admin: 12/09/16 07:14 Dose: 200 mls/hr Nalbuphine HCl (Nubain) 10 mg IVPUSH Q2H PRN PRN Reason: Pain (moderate 4-6) Ondansetron HCl (Zofran) 4 mg IVPUSH Q4H PRN PRN Reason: Nausea/Vomiting Ondansetron HCl (Zofran) 4 mg IVPUSH ONETIME PRN PRN Reason: Nausea/Vomiting Last Admin: 12/09/16 07:10 Dose: 4 mg Sodium Chloride (Saline Flush) 10 ml FLUSH ASDIRECTED PRN PRN Reason: Keep Vein Open Zolpidem Tartrate (Ambien) 5 mg PO BEDTIME PRN PRN Reason: Insomnia Last Admin: 12/08/16 01:19 Dose: 5 mg Discontinued Medications Acetaminophen (Tylenol) 650 mg PO NOW ONE Stop: 12/09/16 07:21 Last Admin: 12/09/16 07:30 Dose: 650 mg Cefazolin Sodium (Ancef) Confirm Administered Dose 2 gm .ROUTE .STK-MED ONE Stop: 12/09/16 09:39 Citric Acid/Sodium Citrate (Bicitra Solution) 30 ml PO ONETIME ONE Stop: 12/09/16 08:57 Fentanyl (Sublimaze) Confirm Administered Dose 100 mcg .ROUTE .STK-MED ONE Stop: 12/09/16 09:09 Penicillin G Potassium 5 (millunits/ Sodium Chloride) 100 mls @ 55 mls/hr IV ONETIME JORDEN Penicillin G Potassium 2.5 (millunits/ Sodium Chloride) 100 mls @ 55 mls/hr IV Q4H JORDEN Last Admin: 12/09/16 04:17 Dose: 100 mls/hr Penicillin G Potassium 2.5 (millunits/ Sodium Chloride) 100 mls @ 100 mls/hr IV Q1H JORDEN Stop: 12/08/16 13:59 Last Admin: 12/08/16 13:17 Dose: 100 mls/hr Gentamicin Sulfate 450 mg/ (Dextrose/Water) 111.25 mls @ 110 mls/hr IV ONETIME ONE Stop: 12/09/16 08:45 Last Admin: 12/09/16 07:50 Dose: 110 mls/hr Clindamycin Phosphate 900 mg/ (Sodium Chloride) 106 mls @ 100 mls/hr IV ONETIME ONE Stop: 12/09/16 09:58 Last Admin: 12/09/16 09:04 Dose: 100 mls/hr Cefazolin Sodium/Dextrose 2 gm (/ Premix) 50 mls @ 100 mls/hr IV ONETIME ONE Stop: 12/09/16 09:25 Lidocaine/Epinephrine (Xylocaine-Mpf 2%-Epi 1:200,000) Confirm Administered Dose 20 ml .ROUTE .STK-MED ONE Stop: 12/09/16 09:39 Metoclopramide HCl (Reglan) 10 mg IVPUSH ONETIME ONE Stop: 12/09/16 08:57 Misoprostol (Cytotec) 25 mcg VAG Q4H PRN PRN Reason: cervical ripening Last Admin: 12/08/16 06:03 Dose: 25 mcg Misoprostol (Cytotec) Confirm Administered Dose 25 mcg .ROUTE .STK-MED ONE Stop: 12/07/16 20:51 Last Admin: 12/08/16 01:19 Dose: Not Given Misoprostol (Cytotec) Confirm Administered Dose 25 mcg .ROUTE .STK-MED ONE Stop: 12/08/16 01:03 Last Admin: 12/08/16 01:19 Dose: Not Given Misoprostol (Cytotec) Confirm Administered Dose 25 mcg .ROUTE .STK-MED ONE Stop: 12/08/16 05:56 Last Admin: 12/08/16 06:03 Dose: Not Given Morphine Sulfate (Duramorph Pf) Confirm Administered Dose 10 mg .ROUTE .STK-MED ONE Stop: 12/09/16 09:42 Ondansetron HCl (Zofran) Confirm Administered Dose 4 mg .ROUTE .STK-MED ONE Stop: 12/09/16 09:43 Penicillin G Potassium (Pfizerpen) Confirm Administered Dose 5 millunits .ROUTE .STK-MED ONE Stop: 12/08/16 19:55 Propofol (Diprivan 20 Ml) Confirm Administered Dose 200 mg .ROUTE .STK-MED ONE Stop: 12/09/16 09:40 Sodium Bicarbonate (Sodium Bicarbonate 8.4%) Confirm Administered Dose 50 meq .ROUTE .STK-MED ONE Stop: 12/09/16 09:39 - Problem List & Annotations (1) 37 weeks gestation of SNOMED Code(s): 81888060 Code(s): Z3A.37 - 37 WEEKS GESTATION OF Status: Acute Current Visit: Yes (2) Solar pruritus SNOMED Code(s): 223100263 Code(s): L29.9 - PRURITUS, UNSPECIFIED Status: Acute Current Visit: Yes (3) Palmar pruritus SNOMED Code(s): 916265479 Code(s): L29.8 - OTHER PRURITUS Status: Acute Current Visit: Yes (4) GBS (group B Streptococcus carrier), +RV culture, currently SNOMED Code(s): 91378533 Code(s): O99.820 - STREPTOCOCCUS B CARRIER STATE COMPLICATING Status: Acute Current Visit: Yes (5) Chorioamnionitis SNOMED Code(s): 18513120 Code(s): O41.1290 - CHORIOAMNIONITIS, UNSP TRIMESTER, NOT APPLICABLE OR UNSP Status: Acute Current Visit: Yes Qualifiers: Fetus number: single or unspecified fetus Trimester: third trimester Qualified Code(s): O41.1230 - Chorioamnionitis, third trimester, not applicable or unspecified (6) Vaginal delivery SNOMED Code(s): 808681502 Code(s): O80 - ENCOUNTER FOR FULL-TERM UNCOMPLICATED DELIVERY Status: Acute Current Visit: Yes - Problem List Review Problem List Initiated/Reviewed/Updated: Yes - My Orders Last 24 Hours: My Active Orders 12/09/16 02:13 Urinary Catheter Assessment [RC] ASDIRECTED 12/09/16 07:00 Ampicillin 2 gm Sodium Chloride 0.9% [Normal Saline] 100 ml IV Q6H 12/09/16 08:57 Procedure Site Prep Instruct [RC] ASDIRECTED Verify Patient Consent Obtain [RC] PER UNIT ROUTINE Schedule Procedure [COMM] Per Unit Routine 12/09/16 11:39 Patient Status Manage Transfer [TRANSFER] Routine 12/09/16 22:00 Urinary Catheter Insertion [Insert Urinary Catheter] [OM.PC] Q24H - Assessment Assessment:: 26 y/o PPD#0 from at 37 6/7 wks. Induced for complaints of pruritis on the palms/soles concerning for underlying cholestasis of - Plan Plan:: * S/p Amp, Gent, and one dose of clinda (while planning to go to OR) for chorioamniotitis. No further antibiotics indicated * Bile acids pending. Will contact patient when these return * Routine cares * Encourage breast feeding * Discharge home in 2 days
[2016-12-09] MEDS ORDERED: Acetaminophen 325 MG Tab PO PRN (12:08)
[2016-12-09] MEDS ORDERED: Benzocaine/Menthol 20%-0.5% Spray 56 GM Canister TOP PRN (12:08)
[2016-12-09] MEDS ORDERED: Lanolin 100% Cream 7 GM Tube TOP PRN (12:08)
[2016-12-09] MEDS ORDERED: Docusate Sodium 100 MG Cap PO PRN (12:08)
[2016-12-09] MEDS ORDERED: Witch Hazel Medicated Pads 100/Jar TOP PRN (12:08)
[2016-12-09] MEDS: Ibuprofen 600 MG Tab PO PRN (21:11)
--- NOTE | 2016-12-10 07:07 | PCM.PNPP ---
- General Info Date of Service: 12/10/16 Functional Status: Reports: Pain Controlled, Tolerating Diet, Ambulating, Urinating - Review of Systems General: Reports: No Symptoms Pulmonary: Reports: No Symptoms Cardiovascular: Reports: No Symptoms Gastrointestinal: Reports: No Symptoms Genitourinary: Reports: No Symptoms Musculoskeletal: Reports: No Symptoms - Patient Data Vital Signs - Most Recent: Last Vital Signs Temp 36.4 C 12/10/16 02:59 Pulse 70 12/10/16 02:59 Resp 14 12/10/16 02:59 BP 118/66 12/10/16 02:59 Pulse Ox 97 12/10/16 02:59 Weight - Most Recent: 91.172 kg I&O - Last 24 Hours: Intake & Output 12/09/16 12/10/16 12/10/16 22:59 06:59 14:59 Intake Total 1630 Balance 1630 Med Orders - Current: Current Medications Acetaminophen (Tylenol) 650 mg PO Q4H PRN PRN Reason: mild pain or fever Benzocaine/Menthol (Dermoplast Pain Relief [place]) 0 gm TOP ASDIRECTED PRN PRN Reason: Perineal Comfort Measure Last Admin: 12/09/16 13:44 Dose: 1 can Docusate Sodium (Colace) 100 mg PO BID PRN PRN Reason: Constipation Emollient Ointment (Lansinoh Hpa) 0 gm TOP ASDIRECTED PRN PRN Reason: Sore Nipples Last Admin: 12/09/16 22:40 Dose: 1 tube Ibuprofen (Motrin) 600 mg PO Q6H PRN PRN Reason: Mild pain or fever Last Admin: 12/09/16 21:11 Dose: 600 mg Witch Aarti (Tucks) 1 pad TOP ASDIRECTED PRN PRN Reason: Hemorrhoid pain Last Admin: 12/09/16 13:44 Dose: 1 box Discontinued Medications Acetaminophen (Tylenol) 650 mg PO NOW ONE Stop: 12/09/16 07:21 Last Admin: 12/09/16 07:30 Dose: 650 mg Cefazolin Sodium (Ancef) Confirm Administered Dose 2 gm .ROUTE .STK-MED ONE Stop: 12/09/16 09:39 Citric Acid/Sodium Citrate (Bicitra Solution) 30 ml PO ONETIME ONE Stop: 12/09/16 08:57 Last Admin: 12/09/16 16:38 Dose: Not Given Ephedrine Sulfate (Ephedrine Sulfate) 5 mg IVPUSH ASDIRECTED PRN PRN Reason: Hypotension Fentanyl (Sublimaze) 100 mcg EPIDUR Q3H PRN PRN Reason: Pain Last Admin: 12/09/16 06:19 Dose: 100 mcg Fentanyl (Sublimaze) Confirm Administered Dose 100 mcg .ROUTE .STK-MED ONE Stop: 12/09/16 09:09 Fentanyl/Bupivacaine HCl (Fentanyl/Bupivacaine/Ns 2 Mcg-0.125% 100 Ml) 100 ml EPIDUR ASDIRECTED JORDEN Last Admin: 12/09/16 09:24 Dose: 100 ml Lactated Ringer's (Ringers, Lactated) 1,000 mls @ 40 mls/hr IV ASDIRECTED JORDEN Last Admin: 12/09/16 03:22 Dose: 40 mls/hr Oxytocin/Lactated Ringer's (Pitocin In Lr 10 Units/1,000 Ml) 10 unit in 1,000 mls @ 12 mls/hr IV TITRATE JORDEN; 2 MUNITS/MIN PRN Reason: Protocol Last Titration: 12/09/16 05:32 Dose: 0 munits/min, 0 mls/hr Oxytocin/Lactated Ringer's (Pitocin In Lr 10 Units/1,000 Ml) 10 unit in 1,000 mls @ 500 mls/hr IV .CONTINUOUS JORDEN Penicillin G Potassium 5 (millunits/ Sodium Chloride) 100 mls @ 55 mls/hr IV ONETIME JORDEN Penicillin G Potassium 2.5 (millunits/ Sodium Chloride) 100 mls @ 55 mls/hr IV Q4H [facility] Last Admin: 12/09/16 04:17 Dose: 100 mls/hr Penicillin G Potassium 2.5 (millunits/ Sodium Chloride) 100 mls @ 100 mls/hr IV Q1H JORDEN Stop: 12/08/16 13:59 Last Admin: 12/08/16 13:17 Dose: 100 mls/hr Ampicillin Sodium 2 gm/ Sodium (Chloride) 100 mls @ 200 mls/hr IV Q6H [facility] Last Admin: 12/09/16 07:14 Dose: 200 mls/hr Gentamicin Sulfate 450 mg/ (Dextrose/Water) 111.25 mls @ 110 mls/hr IV ONETIME ONE Stop: 12/09/16 08:45 Last Admin: 12/09/16 07:50 Dose: 110 mls/hr Clindamycin Phosphate 900 mg/ (Sodium Chloride) 106 mls @ 100 mls/hr IV ONETIME ONE Stop: 12/09/16 09:58 Last Admin: 12/09/16 09:04 Dose: 100 mls/hr Cefazolin Sodium/Dextrose 2 gm (/ Premix) 50 mls @ 100 mls/hr IV ONETIME ONE Stop: 12/09/16 09:25 Last Admin: 12/09/16 16:39 Dose: Not Given Lidocaine/Epinephrine (Xylocaine-Mpf 2%-Epi 1:200,000) Confirm Administered Dose 20 ml .ROUTE .STK-MED ONE Stop: 12/09/16 09:39 Metoclopramide HCl (Reglan) 10 mg IVPUSH ONETIME ONE Stop: 12/09/16 08:57 Last Admin: 12/09/16 16:38 Dose: Not Given Misoprostol (Cytotec) 25 mcg VAG Q4H PRN PRN Reason: cervical ripening Last Admin: 12/08/16 06:03 Dose: 25 mcg Misoprostol (Cytotec) Confirm Administered Dose 25 mcg .ROUTE .STK-MED ONE Stop: 12/07/16 20:51 Last Admin: 12/08/16 01:19 Dose: Not Given Misoprostol (Cytotec) Confirm Administered Dose 25 mcg .ROUTE .STK-MED ONE Stop: 12/08/16 01:03 Last Admin: 12/08/16 01:19 Dose: Not Given Misoprostol (Cytotec) Confirm Administered Dose 25 mcg .ROUTE .STK-MED ONE Stop: 12/08/16 05:56 Last Admin: 12/08/16 06:03 Dose: Not Given Morphine Sulfate (Duramorph Pf) Confirm Administered Dose 10 mg .ROUTE .STK-MED ONE Stop: 12/09/16 09:42 Nalbuphine HCl (Nubain) 10 mg IVPUSH Q2H PRN PRN Reason: Pain (moderate 4-6) Ondansetron HCl (Zofran) 4 mg IVPUSH Q4H PRN PRN Reason: Nausea/Vomiting Ondansetron HCl (Zofran) 4 mg IVPUSH ONETIME PRN PRN Reason: Nausea/Vomiting Last Admin: 12/09/16 07:10 Dose: 4 mg Ondansetron HCl (Zofran) Confirm Administered Dose 4 mg .ROUTE .STK-MED ONE Stop: 12/09/16 09:43 Penicillin G Potassium (Pfizerpen) Confirm Administered Dose 5 millunits .ROUTE .STK-MED ONE Stop: 12/08/16 19:55 Last Admin: 12/09/16 16:39 Dose: Not Given Propofol (Diprivan 20 Ml) Confirm Administered Dose 200 mg .ROUTE .STK-MED ONE Stop: 12/09/16 09:40 Sodium Bicarbonate (Sodium Bicarbonate 8.4%) Confirm Administered Dose 50 meq .ROUTE .STK-MED ONE Stop: 12/09/16 09:39 Sodium Chloride (Saline Flush) 10 ml FLUSH ASDIRECTED PRN PRN Reason: Keep Vein Open Zolpidem Tartrate (Ambien) 5 mg PO BEDTIME PRN PRN Reason: Insomnia Last Admin: 12/08/16 01:19 Dose: 5 mg - Infant Interaction Disposition, : [place] in Room with Family Infant Interaction: Holding Feeding: Attempted ; Nursed Fair/Poor Support Person: - Recovery Exam Fundal Tone: Firm Fundal Level: 1 Fingerbreadths Below Umbilicus Fundal Placement: Midline Lochia Amount: Small Lochia Color: Rubra/Red Perineum Description: Intact, Minimal Bruising/Swelling Episiotomy/Laceration: None Bladder Status: Voiding - Exam General: Alert, Oriented, Cooperative GI/Abdominal Exam: Soft, Non-Tender Extremities: Normal Inspection Skin: Warm, Dry, Intact - Problem List & Annotations (1) 37 weeks gestation of SNOMED Code(s): 27150930 Code(s): Z3A.37 - 37 WEEKS GESTATION OF Status: Acute Current Visit: Yes (2) Solar pruritus SNOMED Code(s): 001247072 Code(s): L29.9 - PRURITUS, UNSPECIFIED Status: Acute Current Visit: Yes (3) Palmar pruritus SNOMED Code(s): 767537255 Code(s): L29.8 - OTHER PRURITUS Status: Acute Current Visit: Yes (4) GBS (group B Streptococcus carrier), +RV culture, currently SNOMED Code(s): 38829429 Code(s): O99.820 - STREPTOCOCCUS B CARRIER STATE COMPLICATING Status: Acute Current Visit: Yes (5) Chorioamnionitis SNOMED Code(s): 63128033 Code(s): O41.1290 - CHORIOAMNIONITIS, UNSP TRIMESTER, NOT APPLICABLE OR UNSP Status: Acute Current Visit: Yes Qualifiers: Fetus number: single or unspecified fetus Trimester: third trimester Qualified Code(s): O41.1230 - Chorioamnionitis, third trimester, not applicable or unspecified (6) Vaginal delivery SNOMED Code(s): 606102209 Code(s): O80 - ENCOUNTER FOR FULL-TERM UNCOMPLICATED DELIVERY Status: Acute Current Visit: Yes - Problem List Review Problem List Initiated/Reviewed/Updated: Yes - My Orders Last 24 Hours: My Active Orders 12/09/16 08:57 Procedure Site Prep Instruct [RC] ASDIRECTED Verify Patient Consent Obtain [RC] PER UNIT ROUTINE 12/09/16 12:08 Activity as Tolerated [RC] PER UNIT ROUTINE Vital Signs [RC] 04,12,20 Acetaminophen [Tylenol] 650 mg PO Q4H PRN Benzocaine/Menthol [Dermoplast Pain Relief [place]] See Dose Instructions TOP ASDIRECTED PRN Docusate Sodium [Colace] 100 mg PO BID PRN Ibuprofen [Motrin] 600 mg PO Q6H PRN Lanolin [Lansinoh HPA] See Dose Instructions TOP ASDIRECTED PRN Witch Aarti [Tucks] 1 pad TOP ASDIRECTED PRN Assess Lochia [WOMSER] Per Unit Routine Assess Uterine Involution [WOMSER] Per Unit Routine Breast Pump [WOMSER] Per Unit Routine Heat Therapy [OM.PC] PRN Ice Therapy [OM.PC] Per Unit Routine Perineal Care [OM.PC] Per Unit Routine Peripheral IV Discontinue [OM.PC] Routine Sitz Bath [OM.PC] Per Unit Routine 12/09/16 Lunch Regular Diet [DIET] 12/10/16 12:08 Heat Therapy [OM.PC] PRN - Assessment Assessment:: 26 y/o PPD#1 from at 37 6/7 wks. Induced for complaints of pruritis on the palms/soles concerning for underlying cholestasis of - Plan Plan:: * Bile acids pending. * Routine cares * Encourage breast feeding * Discharge home tomorrow
[2016-12-10] MEDS: Ibuprofen 600 MG Tab PO PRN ×2 (08:12→17:29)
[2016-12-11 03:57] VITALS: BP 117/62
--- NOTE | 2016-12-11 10:34 | PCM.DCSUM1 ---
Discharge Summary - Hospital Course Free Text/Narrative:: [facility] LIVE L/D Delivery Note Patient Name: SHAW GRULLON Date of : 89 Patient Status: Inpatient Attending Provider: Natasha Guidry Date: 12/09/16 11:42 Initialization Date: 12/09/16 11:42 L & D Note - General Info Date of Service: 12/09/16 - Delivery Note Labor: Induced by ARM, Induced by Oxytocin Cervical Ripening Method: Balloon Device, Misoprostil Delivery Outcome: Livebirth Infant Delivery Method: Spontaneous Vaginal Delivery-Single Delivery Mode: Spontaneous Presentation: Right Occiput Anterior (EBONI) Nuchal Cord: None Anesthesia Type: Epidural Amniotic Fluid Description: Clear Episiotomy Type: None Laceration: 2nd Degree, Perineal Suture type: Vicryl Suture size: 2-0 Placenta: Intact, Spontaneous Cord: 3 Vessels Estimated Blood Loss: 300 Resuscitation Needed: Yes [place]: Bulb Syringe, Stimulated, Warmed, [place] Used Score 1 min: 8 Score 5 min: 9 Delivery Comments (Free Text/Narrative):: Patient found to be complete and began pushing. With maternal pushing effort head delivered in an EBONI presentation. No nuchal cord present. With gentle downward traction the shoulders and body delivered. Infant placed on maternal abdomen. Cord clamped and cut. Cord blood obtained. Placenta allowed time to separate and then spontaneously expelled. Inspection of the perineum showed a 2nd degree laceration repaired with a 2-0 vicryl in the typical fashion. - Patient Data Vitals - Most Recent: Last Vital Signs Temp 37.9 C 12/09/16 07:30 Pulse 86 12/09/16 07:31 Resp 13 12/08/16 14:09 BP 114/55 L 12/09/16 07:31 Pulse Ox 100 12/09/16 06:30 Weight - Most Recent: 91.172 kg I&O - Last 24 Hours: Intake & Output 12/08/16 12/09/16 12/09/16 22:59 06:59 14:59 Intake Total 120 Balance 120 Med Orders - Current: Current Medications Ephedrine Sulfate (Ephedrine Sulfate) 5 mg IVPUSH ASDIRECTED PRN PRN Reason: Hypotension Fentanyl (Sublimaze) 100 mcg EPIDUR Q3H PRN PRN Reason: Pain Last Admin: 12/09/16 06:19 Dose: 100 mcg Fentanyl/Bupivacaine HCl (Fentanyl/Bupivacaine/Ns 2 Mcg-0.125% 100 Ml) 100 ml EPIDUR ASDIRECTED JORDEN Last Admin: 12/09/16 09:24 Dose: 100 ml Lactated Ringer's (Ringers, Lactated) 1,000 mls @ 40 mls/hr IV ASDIRECTED JORDEN Last Admin: 12/09/16 03:22 Dose: 40 mls/hr Oxytocin/Lactated Ringer's (Pitocin In Lr 10 Units/1,000 Ml) 10 unit in 1,000 mls @ 12 mls/hr IV TITRATE JORDEN; 2 MUNITS/MIN PRN Reason: Protocol Last Titration: 12/09/16 05:32 Dose: 0 munits/min, 0 mls/hr Oxytocin/Lactated Ringer's (Pitocin In Lr 10 Units/1,000 Ml) 10 unit in 1,000 mls @ 500 mls/hr IV .CONTINUOUS JORDEN Ampicillin Sodium 2 gm/ Sodium (Chloride) 100 mls @ 200 mls/hr IV Q6H JORDEN Last Admin: 12/09/16 07:14 Dose: 200 mls/hr Nalbuphine HCl (Nubain) 10 mg IVPUSH Q2H PRN PRN Reason: Pain (moderate 4-6) Ondansetron HCl (Zofran) 4 mg IVPUSH Q4H PRN PRN Reason: Nausea/Vomiting Ondansetron HCl (Zofran) 4 mg IVPUSH ONETIME PRN PRN Reason: Nausea/Vomiting Last Admin: 12/09/16 07:10 Dose: 4 mg Sodium Chloride (Saline Flush) 10 ml FLUSH ASDIRECTED PRN PRN Reason: Keep Vein Open Zolpidem Tartrate (Ambien) 5 mg PO BEDTIME PRN PRN Reason: Insomnia Last Admin: 12/08/16 01:19 Dose: 5 mg Discontinued Medications Acetaminophen (Tylenol) 650 mg PO NOW ONE Stop: 12/09/16 07:21 Last Admin: 12/09/16 07:30 Dose: 650 mg Cefazolin Sodium (Ancef) Confirm Administered Dose 2 gm .ROUTE .STK-MED ONE Stop: 12/09/16 09:39 Citric Acid/Sodium Citrate (Bicitra Solution) 30 ml PO ONETIME ONE Stop: 12/09/16 08:57 Fentanyl (Sublimaze) Confirm Administered Dose 100 mcg .ROUTE .STK-MED ONE Stop: 12/09/16 09:09 Penicillin G Potassium 5 (millunits/ Sodium Chloride) 100 mls @ 55 mls/hr IV ONETIME JORDEN Penicillin G Potassium 2.5 (millunits/ Sodium Chloride) 100 mls @ 55 mls/hr IV Q4H JORDEN Last Admin: 12/09/16 04:17 Dose: 100 mls/hr Penicillin G Potassium 2.5 (millunits/ Sodium Chloride) 100 mls @ 100 mls/hr IV Q1H JORDEN Stop: 12/08/16 13:59 Last Admin: 12/08/16 13:17 Dose: 100 mls/hr Gentamicin Sulfate 450 mg/ (Dextrose/Water) 111.25 mls @ 110 mls/hr IV ONETIME ONE Stop: 12/09/16 08:45 Last Admin: 12/09/16 07:50 Dose: 110 mls/hr Clindamycin Phosphate 900 mg/ (Sodium Chloride) 106 mls @ 100 mls/hr IV ONETIME ONE Stop: 12/09/16 09:58 Last Admin: 12/09/16 09:04 Dose: 100 mls/hr Cefazolin Sodium/Dextrose 2 gm (/ Premix) 50 mls @ 100 mls/hr IV ONETIME ONE Stop: 12/09/16 09:25 Lidocaine/Epinephrine (Xylocaine-Mpf 2%-Epi 1:200,000) Confirm Administered Dose 20 ml .ROUTE .STK-MED ONE Stop: 12/09/16 09:39 Metoclopramide HCl (Reglan) 10 mg IVPUSH ONETIME ONE Stop: 12/09/16 08:57 Misoprostol (Cytotec) 25 mcg VAG Q4H PRN PRN Reason: cervical ripening Last Admin: 12/08/16 06:03 Dose: 25 mcg Misoprostol (Cytotec) Confirm Administered Dose 25 mcg .ROUTE .STK-MED ONE Stop: 12/07/16 20:51 Last Admin: 12/08/16 01:19 Dose: Not Given Misoprostol (Cytotec) Confirm Administered Dose 25 mcg .ROUTE .STK-MED ONE Stop: 12/08/16 01:03 Last Admin: 12/08/16 01:19 Dose: Not Given Misoprostol (Cytotec) Confirm Administered Dose 25 mcg .ROUTE .STK-MED ONE Stop: 12/08/16 05:56 Last Admin: 12/08/16 06:03 Dose: Not Given Morphine Sulfate (Duramorph Pf) Confirm Administered Dose 10 mg .ROUTE .STK-MED ONE Stop: 12/09/16 09:42 Ondansetron HCl (Zofran) Confirm Administered Dose 4 mg .ROUTE .STK-MED ONE Stop: 12/09/16 09:43 Penicillin G Potassium (Pfizerpen) Confirm Administered Dose 5 millunits .ROUTE .STK-MED ONE Stop: 12/08/16 19:55 Propofol (Diprivan 20 Ml) Confirm Administered Dose 200 mg .ROUTE .STK-MED ONE Stop: 12/09/16 09:40 Sodium Bicarbonate (Sodium Bicarbonate 8.4%) Confirm Administered Dose 50 meq .ROUTE .STK-MED ONE Stop: 12/09/16 09:39 - Problem List & Annotations (1) 37 weeks gestation of SNOMED Code(s): 12920103 Code(s): Z3A.37 - 37 WEEKS GESTATION OF Status: Acute Current Visit: Yes (2) Solar pruritus SNOMED Code(s): 661795342 Code(s): L29.9 - PRURITUS, UNSPECIFIED Status: Acute Current Visit: Yes (3) Palmar pruritus SNOMED Code(s): 840799804 Code(s): L29.8 - OTHER PRURITUS Status: Acute Current Visit: Yes (4) GBS (group B Streptococcus carrier), +RV culture, currently SNOMED Code(s): 78359710 Code(s): O99.820 - STREPTOCOCCUS B CARRIER STATE COMPLICATING Status: Acute Current Visit: Yes (5) Chorioamnionitis SNOMED Code(s): 54416729 Code(s): O41.1290 - CHORIOAMNIONITIS, UNSP TRIMESTER, NOT APPLICABLE OR UNSP Status: Acute Current Visit: Yes Qualifiers: Fetus number: single or unspecified fetus Trimester: third trimester Qualified Code(s): O41.1230 - Chorioamnionitis, third trimester, not applicable or unspecified (6) Vaginal delivery SNOMED Code(s): 087353418 Code(s): O80 - ENCOUNTER FOR FULL-TERM UNCOMPLICATED DELIVERY Status: Acute Current Visit: Yes - Problem List Review Problem List Initiated/Reviewed/Updated: Yes - My Orders Last 24 Hours: My Active Orders 12/09/16 02:13 Urinary Catheter Assessment [RC] ASDIRECTED 12/09/16 07:00 Ampicillin 2 gm Sodium Chloride 0.9% [Normal Saline] 100 ml IV Q6H 12/09/16 08:57 Procedure Site Prep Instruct [RC] ASDIRECTED Verify Patient Consent Obtain [RC] PER UNIT ROUTINE Schedule Procedure [COMM] Per Unit Routine 12/09/16 11:39 Patient Status Manage Transfer [TRANSFER] Routine 12/09/16 22:00 Urinary Catheter Insertion [Insert Urinary Catheter] [OM.PC] Q24H - Assessment Assessment:: 26 y/o PPD#0 from at 37 6/7 wks. Induced for complaints of pruritis on the palms/soles concerning for underlying cholestasis of - Plan Plan:: * S/p Amp, Gent, and one dose of clinda (while planning to go to [place]) for chorioamniotitis. No further antibiotics indicated * Bile acids pending. Will contact patient when these return * Routine cares * Encourage breast feeding * Discharge home in 2 days HPI Initial Comments: [facility] LIVE L/D Delivery Note Patient Name: SHAW GRULLON Date of : 89 Patient Status: Inpatient Attending Provider: Natasha Guidry Date: 12/09/16 11:42 Initialization Date: 12/09/16 11:42 L & D Note - General Info Date of Service: 12/09/16 - Delivery Note Labor: Induced by ARM, Induced by Oxytocin Cervical Ripening Method: Balloon Device, Misoprostil Delivery Outcome: Livebirth Delivery Method: Spontaneous Vaginal Delivery-Single Infant Delivery Mode: Spontaneous Presentation: Right Occiput Anterior (EBONI) Nuchal Cord: None Anesthesia Type: Epidural Amniotic Fluid Description: Clear Episiotomy Type: None Laceration: 2nd Degree, Perineal Suture type: Vicryl Suture size: 2-0 Placenta: Intact, Spontaneous Cord: 3 Vessels Estimated Blood Loss: 300 Resuscitation Needed: Yes : Bulb Syringe, Stimulated, Warmed, [place] Used Score 1 min: 8 Score 5 min: 9 Delivery Comments (Free Text/Narrative):: Patient found to be complete and began pushing. With maternal pushing effort head delivered in an EBONI presentation. No nuchal cord present. With gentle downward traction the shoulders and body delivered. Infant placed on maternal abdomen. Cord clamped and cut. Cord blood obtained. Placenta allowed time to separate and then spontaneously expelled. Inspection of the perineum showed a 2nd degree laceration repaired with a 2-0 vicryl in the typical fashion. - Patient Data Vitals - Most Recent: Last Vital Signs Temp 37.9 C 12/09/16 07:30 Pulse 86 12/09/16 07:31 Resp 13 12/08/16 14:09 BP 114/55 L 12/09/16 07:31 Pulse Ox 100 12/09/16 06:30 Weight - Most Recent: 91.172 kg I&O - Last 24 Hours: Intake & Output 12/08/16 12/09/16 12/09/16 22:59 06:59 14:59 Intake Total 120 Balance 120 Med Orders - Current: Current Medications Ephedrine Sulfate (Ephedrine Sulfate) 5 mg IVPUSH ASDIRECTED PRN PRN Reason: Hypotension Fentanyl (Sublimaze) 100 mcg EPIDUR Q3H PRN PRN Reason: Pain Last Admin: 12/09/16 06:19 Dose: 100 mcg Fentanyl/Bupivacaine HCl (Fentanyl/Bupivacaine/Ns 2 Mcg-0.125% 100 Ml) 100 ml EPIDUR ASDIRECTED JORDEN Last Admin: 12/09/16 09:24 Dose: 100 ml Lactated Ringer's (Ringers, Lactated) 1,000 mls @ 40 mls/hr IV ASDIRECTED JORDEN Last Admin: 12/09/16 03:22 Dose: 40 mls/hr Oxytocin/Lactated Ringer's (Pitocin In Lr 10 Units/1,000 Ml) 10 unit in 1,000 mls @ 12 mls/hr IV TITRATE JORDEN; 2 MUNITS/MIN PRN Reason: Protocol Last Titration: 12/09/16 05:32 Dose: 0 munits/min, 0 mls/hr Oxytocin/Lactated Ringer's (Pitocin In Lr 10 Units/1,000 Ml) 10 unit in 1,000 mls @ 500 mls/hr IV .CONTINUOUS [facility] Ampicillin Sodium 2 gm/ Sodium (Chloride) 100 mls @ 200 mls/hr IV Q6H [facility] Last Admin: 12/09/16 07:14 Dose: 200 mls/hr Nalbuphine HCl (Nubain) 10 mg IVPUSH Q2H PRN PRN Reason: Pain (moderate 4-6) Ondansetron HCl (Zofran) 4 mg IVPUSH Q4H PRN PRN Reason: Nausea/Vomiting Ondansetron HCl (Zofran) 4 mg IVPUSH ONETIME PRN PRN Reason: Nausea/Vomiting Last Admin: 12/09/16 07:10 Dose: 4 mg Sodium Chloride (Saline Flush) 10 ml FLUSH ASDIRECTED PRN PRN Reason: Keep Vein Open Zolpidem Tartrate (Ambien) 5 mg PO BEDTIME PRN PRN Reason: Insomnia Last Admin: 12/08/16 01:19 Dose: 5 mg Discontinued Medications Acetaminophen (Tylenol) 650 mg PO NOW ONE Stop: 12/09/16 07:21 Last Admin: 12/09/16 07:30 Dose: 650 mg Cefazolin Sodium (Ancef) Confirm Administered Dose 2 gm .ROUTE .STK-MED ONE Stop: 12/09/16 09:39 Citric Acid/Sodium Citrate (Bicitra Solution) 30 ml PO ONETIME ONE Stop: 12/09/16 08:57 Fentanyl (Sublimaze) Confirm Administered Dose 100 mcg .ROUTE .STK-MED ONE Stop: 12/09/16 09:09 Penicillin G Potassium 5 (millunits/ Sodium Chloride) 100 mls @ 55 mls/hr IV ONETIME [facility] Penicillin G Potassium 2.5 (millunits/ Sodium Chloride) 100 mls @ 55 mls/hr IV Q4H [facility] Last Admin: 12/09/16 04:17 Dose: 100 mls/hr Penicillin G Potassium 2.5 (millunits/ Sodium Chloride) 100 mls @ 100 mls/hr IV Q1H JORDEN Stop: 12/08/16 13:59 Last Admin: 12/08/16 13:17 Dose: 100 mls/hr Gentamicin Sulfate 450 mg/ (Dextrose/Water) 111.25 mls @ 110 mls/hr IV ONETIME ONE Stop: 12/09/16 08:45 Last Admin: 12/09/16 07:50 Dose: 110 mls/hr Clindamycin Phosphate 900 mg/ (Sodium Chloride) 106 mls @ 100 mls/hr IV ONETIME ONE Stop: 12/09/16 09:58 Last Admin: 12/09/16 09:04 Dose: 100 mls/hr Cefazolin Sodium/Dextrose 2 gm (/ Premix) 50 mls @ 100 mls/hr IV ONETIME ONE Stop: 12/09/16 09:25 Lidocaine/Epinephrine (Xylocaine-Mpf 2%-Epi 1:200,000) Confirm Administered Dose 20 ml .ROUTE .STK-MED ONE Stop: 12/09/16 09:39 Metoclopramide HCl (Reglan) 10 mg IVPUSH ONETIME ONE Stop: 12/09/16 08:57 Misoprostol (Cytotec) 25 mcg VAG Q4H PRN PRN Reason: cervical ripening Last Admin: 12/08/16 06:03 Dose: 25 mcg Misoprostol (Cytotec) Confirm Administered Dose 25 mcg .ROUTE .STK-MED ONE Stop: 12/07/16 20:51 Last Admin: 12/08/16 01:19 Dose: Not Given Misoprostol (Cytotec) Confirm Administered Dose 25 mcg .ROUTE .STK-MED ONE Stop: 12/08/16 01:03 Last Admin: 12/08/16 01:19 Dose: Not Given Misoprostol (Cytotec) Confirm Administered Dose 25 mcg .ROUTE .STK-MED ONE Stop: 12/08/16 05:56 Last Admin: 12/08/16 06:03 Dose: Not Given Morphine Sulfate (Duramorph Pf) Confirm Administered Dose 10 mg .ROUTE .STK-MED ONE Stop: 12/09/16 09:42 Ondansetron HCl (Zofran) Confirm Administered Dose 4 mg .ROUTE .STK-MED ONE Stop: 12/09/16 09:43 Penicillin G Potassium (Pfizerpen) Confirm Administered Dose 5 millunits .ROUTE .STK-MED ONE Stop: 12/08/16 19:55 Propofol (Diprivan 20 Ml) Confirm Administered Dose 200 mg .ROUTE .STK-MED ONE Stop: 12/09/16 09:40 Sodium Bicarbonate (Sodium Bicarbonate 8.4%) Confirm Administered Dose 50 meq .ROUTE .STK-MED ONE Stop: 12/09/16 09:39 - Problem List & Annotations (1) 37 weeks gestation of SNOMED Code(s): 42013145 Code(s): Z3A.37 - 37 WEEKS GESTATION OF Status: Acute Current Visit: Yes (2) Solar pruritus SNOMED Code(s): 886110396 Code(s): L29.9 - PRURITUS, UNSPECIFIED Status: Acute Current Visit: Yes (3) Palmar pruritus SNOMED Code(s): 180701440 Code(s): L29.8 - OTHER PRURITUS Status: Acute Current Visit: Yes (4) GBS (group B Streptococcus carrier), +RV culture, currently SNOMED Code(s): 76279377 Code(s): O99.820 - STREPTOCOCCUS B CARRIER STATE COMPLICATING Status: Acute Current Visit: Yes (5) Chorioamnionitis SNOMED Code(s): 71653102 Code(s): O41.1290 - CHORIOAMNIONITIS, UNSP TRIMESTER, NOT APPLICABLE OR UNSP Status: Acute Current Visit: Yes Qualifiers: Fetus number: single or unspecified fetus Trimester: third trimester Qualified Code(s): O41.1230 - Chorioamnionitis, third trimester, not applicable or unspecified (6) Vaginal delivery SNOMED Code(s): 434371781 Code(s): O80 - ENCOUNTER FOR FULL-TERM UNCOMPLICATED DELIVERY Status: Acute Current Visit: Yes - Problem List Review Problem List Initiated/Reviewed/Updated: Yes - My Orders Last 24 Hours: My Active Orders 12/09/16 02:13 Urinary Catheter Assessment [RC] ASDIRECTED 12/09/16 07:00 Ampicillin 2 gm Sodium Chloride 0.9% [Normal Saline] 100 ml IV Q6H 12/09/16 08:57 Procedure Site Prep Instruct [RC] ASDIRECTED Verify Patient Consent Obtain [RC] PER UNIT ROUTINE Schedule Procedure [COMM] Per Unit Routine 12/09/16 11:39 Patient Status Manage Transfer [TRANSFER] Routine 12/09/16 22:00 Urinary Catheter Insertion [Insert Urinary Catheter] [OM.PC] Q24H - Assessment Assessment:: 26 y/o PPD#0 from at 37 6/7 wks. Induced for complaints of pruritis on the palms/soles concerning for underlying cholestasis of - Plan Plan:: * S/p Amp, Gent, and one dose of clinda (while planning to go to [place]) for chorioamniotitis. No further antibiotics indicated * Bile acids pending. Will contact patient when these return * Routine cares * Encourage breast feeding * Discharge home in 2 days Brief History: [facility] LIVE . L/D Delivery Note. [facility]: [id number] Date of : Patient Status: Inpatient. Attending Provider: Natasha Guidry CAccount Number: [id number]. Date: 12/09/16 11:42Initialization Date: 12/09/16 11:42. L & D Note. - General Info. Date of Service: 12/09/16. - Delivery Note. Labor: Induced by ARM, Induced by Oxytocin. Cervical Ripening Method: Balloon Device, Misoprostil. Delivery Outcome: Livebirth. Infant Delivery Method: Spontaneous Vaginal Delivery-Single. Infant Delivery Mode: Spontaneous. Presentation: Right Occiput Anterior (EBONI). Nuchal Cord: None. Anesthesia Type : Epidural. Amniotic Fluid Description: Clear. Episiotomy Type: None. Laceration: 2nd Degree, Perineal. Suture type: Vicryl. Suture size: 2-0. Placenta: Intact, Spontaneous. Cord: 3 Vessels. Estimated Blood Loss: 300. Resuscitation Needed: Yes. : Bulb Syringe, Stimulated, Warmed, [place] Used. Score 1 min: 8. Score 5 min: 9. Delivery Comments (Free Text/Narrative):: Patient found to be complete and began pushing. With maternal pushing effort head delivered in an EBONI presentation. No nuchal cord present. With gentle downward traction the shoulders and body delivered. placed on maternal abdomen. Cord clamped and cut. Cord blood obtained. Placenta allowed time to separate and then spontaneously expelled. Inspection of the perineum showed a 2nd degree laceration repaired with a 2-0 vicryl in the typical fashion. - Patient Data. Vitals - Most Recent : Last Vital Signs. Temp 37.9 C 12/09/16 07:30. Pulse 86 12/09/16 07:31. Resp 13 12/08/16 14:09. BP 114/55 L 12/09/16 07:31. Pulse Ox 100 12/09/16 06 :30. Weight - Most Recent: 91.172 kg. I&O - Last 24 Hours: Intake & Output. 12/08/170901/1710. 22:5906:5914:59. Intake [id number]. [id number]. Med Orders - Current: Current Medications. Ephedrine Sulfate (Ephedrine Sulfate) 5 mg IVPUSH ASDIRECTED PRN. PRN Reason: Hypotension. Fentanyl (Sublimaze) 100 mcg EPIDUR Q3H PRN. PRN Reason: Pain. Last Admin: 12/09/16 06:19 Dose: 100 mcg. Fentanyl/Bupivacaine HCl (Fentanyl/Bupivacaine/Ns 2 Mcg-0.125% 100 Ml ) 100 ml EPIDUR ASDIRECTED JORDEN. Last Admin: 12/09/16 09:24 Dose: 100 ml. Lactated Ringer's (Ringers, Lactated) 1,000 mls @ 40 mls/hr IV ASDIRECTED JORDEN. Last Admin: 12/09/16 03:22 Dose: 40 mls/hr. Oxytocin/Lactated Ringer's ( Pitocin In Lr 10 Units/1,000 Ml) 10 unit in 1,000 mls @ 12 mls/hr IV TITRATE JORDEN; 2 MUNITS/MIN. PRN Reason: Protocol. Last Titration: 12/09/16 05:32 Dose: 0 munits/min, 0 mls/hr. Oxytocin/Lactated Ringer's (Pitocin In Lr 10 Units/1, 000 Ml) 10 unit in 1,000 mls @ 500 mls/hr IV .CONTINUOUS JORDEN. Ampicillin Sodium 2 gm/ Sodium (Chloride) 100 mls @ 200 mls/hr IV Q6H JORDEN. Last Admin: 07:14 Dose: 200 mls/hr. Nalbuphine HCl (Nubain) 10 mg IVPUSH Q2H PRN. PRN Reason: Pain (moderate 4-6). Ondansetron HCl (Zofran) 4 mg IVPUSH Q4H PRN. PRN Reason: Nausea/Vomiting. Ondansetron HCl (Zofran) 4 mg IVPUSH ONETIME PRN. PRN Reason: Nausea/Vomiting. Last Admin: 12/09/16 07:10 Dose: 4 mg. Sodium Chloride (Saline Flush) 10 ml FLUSH ASDIRECTED PRN. PRN Reason: Keep Vein Open. Zolpidem Tartrate (Ambien) 5 mg PO BEDTIME PRN. PRN Reason: Insomnia. Last Admin: 12/08/16 01:19 Dose: 5 mg. Discontinued Medications. Acetaminophen (Tylenol) 650 mg PO NOW ONE. Stop: 12/09/16 07:21. Last Admin: 12/09/16 07:30 Dose: 650 mg. Cefazolin Sodium (Ancef) Confirm Administered Dose 2 gm .ROUTE .STK-MED ONE. Stop: 12/09/16 09:39. Citric Acid/Sodium Citrate (Bicitra Solution) 30 ml PO ONETIME ONE. Stop: 12/09/16 08:57. Fentanyl (Sublimaze) Confirm Administered Dose 100 mcg .ROUTE .STK-MED ONE. Stop: 12/09/16 09:09. Penicillin G Potassium 5 (millunits/ Sodium Chloride) 100 mls @ 55 mls/hr IV ONETIME JORDEN. Penicillin G Potassium 2.5 (millunits/ Sodium Chloride) 100 mls @ 55 mls/hr IV Q4H JORDEN. Last Admin: 12/09/16 04:17 Dose: 100 mls/hr. Penicillin G Potassium 2.5 (millunits/ Sodium Chloride) 100 mls @ 100 mls/hr IV Q1H JORDEN. Stop: 12/08/16 13:59. Last Admin: 12/08/16 13 :17 Dose: 100 mls/hr. Gentamicin Sulfate 450 mg/ (Dextrose/Water) 111.25 mls @ 110 mls/hr IV ONETIME ONE. Stop: 12/09/16 08:45. Last Admin: 12/09/16 07:50 Dose: 110 mls/hr. Clindamycin Phosphate 900 mg/ (Sodium Chloride) 106 mls @ 100 mls/hr IV ONETIME ONE. Stop: 12/09/16 09:58. Last Admin: 12/09/16 09:04 Dose: 100 mls/hr. Cefazolin Sodium/Dextrose 2 gm (/ Premix) 50 mls @ 100 mls/ hr IV ONETIME ONE. Stop: 12/09/16 09:25. Lidocaine/Epinephrine (Xylocaine-Mpf 2%-Epi 1:200,000) Confirm Administered Dose 20 ml .ROUTE .STK-MED ONE. Stop: 09:39. Metoclopramide HCl (Reglan) 10 mg IVPUSH ONETIME ONE. Stop: 02/13 08:57. Misoprostol (Cytotec) 25 mcg VAG Q4H PRN. PRN Reason: cervical ripening. Last Admin: 12/08/16 06:03 Dose: 25 mcg. Misoprostol (Cytotec) Confirm Administered Dose 25 mcg .ROUTE .STK-MED ONE. Stop: 12/07/16 20:51. Last Admin: 12/08/16 01:19 Dose: Not Given. Misoprostol (Cytotec) Confirm Administered Dose 25 mcg .ROUTE .STK-MED ONE. Stop: 12/08/16 01:03. Last Admin : 12/08/16 01:19 Dose: Not Given. Misoprostol (Cytotec) Confirm Administered Dose 25 mcg .ROUTE .STK-MED ONE. Stop: 12/08/16 05:56. Last Admin: 12/08/16 06 :03 Dose: Not Given. Morphine Sulfate (Duramorph Pf) Confirm Administered Dose 10 mg .ROUTE .STK-MED ONE. Stop: 12/09/16 09:42. Ondansetron HCl (Zofran ) Confirm Administered Dose 4 mg .ROUTE .STK-MED ONE. Stop: 12/09/16 09:43. Penicillin G Potassium (Pfizerpen) Confirm Administered Dose 5 millunits .ROUTE .STK-MED ONE. Stop: 12/08/16 19:55. Propofol (Diprivan 20 Ml) Confirm Administered Dose 200 mg .ROUTE .STK-MED ONE. Stop: 12/09/16 09:40. Sodium Bicarbonate (Sodium Bicarbonate 8.4%) Confirm Administered Dose 50 meq .ROUTE .STK-MED ONE. Stop: 12/09/16 09:39. - Problem List & Annotations. (1) 37 weeks gestation of . SNOMED Code(s): 99962517. Code(s): Z3A.37 - 37 WEEKS GESTATION OF Status: Acute Current Visit: Yes. (2) Solar pruritus. SNOMED Code(s): 385316693. Code(s): L29.9 - PRURITUS, UNSPECIFIED Status: Acute Current Visit: Yes. (3) Palmar pruritus. SNOMED Code(s): 766411010. Code(s): L29.8 - OTHER PRURITUS Status: Acute Current Visit: Yes. (4) GBS (group B Streptococcus carrier), +RV culture, currently . SNOMED Code(s): 84667309. Code(s): O99.820 - STREPTOCOCCUS B CARRIER STATE COMPLICATING Status: Acute Current Visit: Yes. (5) Chorioamnionitis. SNOMED Code(s): 41190487. Code(s): O41.1290 - CHORIOAMNIONITIS, UNSP TRIMESTER, NOT APPLICABLE OR UNSP Status: Acute Current Visit: Yes. Qualifiers: Fetus number: single or unspecified fetus Trimester: third trimester Qualified Code(s): O41.1230 - Chorioamnionitis, third trimester, not applicable or unspecified. (6) Vaginal delivery. SNOMED Code(s): 818256259. Code(s): O80 - ENCOUNTER FOR FULL-TERM UNCOMPLICATED DELIVERY Status: Acute Current Visit: Yes. - Problem List Review. Problem List Initiated/Reviewed/Updated: Yes. - My Orders. Last 24 Hours: My Active Orders. 12/09/16 02:13. Urinary Catheter Assessment [RC] ASDIRECTED. 07:00. Ampicillin 2 gm Sodium Chloride 0.9% [Normal Saline] 100 ml IV Q6H. 12/09/16 08:57. Procedure Site Prep Instruct [RC] ASDIRECTED. Verify Patient Consent Obtain [RC] PER UNIT ROUTINE. Schedule Procedure [COMM] Per Unit Routine. 12/09/16 11:39. Patient Status Manage Transfer [TRANSFER] Routine. 12/09/16 22:00. Urinary Catheter Insertion [Insert Urinary Catheter] [OM.PC] Q24H. - Assessment. Assessment:: 26 y/o PPD#0 from at 37 6/7 wks. Induced for complaints of pruritis on the palms/soles concerning for underlying cholestasis of . - Plan. Plan:: . S/p Amp, Gent, and one dose of clinda (while planning to go to [place]) for chorioamniotitis. No further antibiotics indicated. Bile acids pending. Will contact patient when these return. Routine cares. Encourage breast feeding. Discharge home in 2 days - Discharge Data Discharge Date: 12/11/16 Discharge Disposition: Home, Self-Care 01 Condition: Good - Discharge Diagnosis/Problem(s) (1) 37 weeks gestation of SNOMED Code(s): 92378991 ICD Code: Z3A.37 - 37 WEEKS GESTATION OF Status: Acute Current Visit: Yes (2) Chorioamnionitis SNOMED Code(s): 33020590 ICD Code: O41.1290 - CHORIOAMNIONITIS, UNSP TRIMESTER, NOT APPLICABLE OR UNSP Status: Acute Current Visit: Yes Qualifiers: Fetus number: single or unspecified fetus Trimester: third trimester Qualified Code(s): O41.1230 - Chorioamnionitis, third trimester, not applicable or unspecified (3) GBS (group B Streptococcus carrier), +RV culture, currently SNOMED Code(s): 67871557 ICD Code: O99.820 - STREPTOCOCCUS B CARRIER STATE COMPLICATING Status: Acute Current Visit: Yes - Patient Summary/Data Complications: None Consults: Consultations 12/10/16 13:59 Consult to [employer] [CONS] Routine Hospital Course: Uneventful - Patient Instructions Diet: Regular Diet as Tolerated Driving: Do Not Drive (48 hours) Showering/Bathing: May Shower Notify Provider of: Fever, Increased Pain, Swelling and Redness, Drainage, Nausea and/or Vomiting - Discharge Plan Home Medications: Home Meds Acetaminophen [Tylenol] 650 mg PO Q6H PRN tablet 12/11/16 [Rx] Benzocaine/Menthol [Dermoplast Pain Relief Prosper] 1 spray TOP ASDIRECTED PRN canister 12/11/16 [Rx] Docusate Sodium [Colace] 100 mg PO BID PRN cap 12/11/16 [Rx] Ibuprofen [IJD: Ibuprofen] 600 mg PO Q6H PRN tablet 12/11/16 [Rx] Lanolin [Lansinoh HPA] 1 applic TOP ASDIRECTED PRN tube 12/11/16 [Rx] Witch Aarti [Tucks] 1 pad TOP ASDIRECTED PRN pad 12/11/16 [Rx] Patient Handouts: Home Care Instructions for Mom, Smoking Cessation, Tips for Success Referrals: Natasha Guidry MD [Primary Care Provider] - (Call to schedule follow up appointment in [address] Guidry. ) - Discharge Summary/Plan Comment DC Time >30 min.: No - Patient Data Vitals - Most Recent: Last Vital Signs Temp 97.9 F 12/11/16 03:33 Pulse 68 12/11/16 03:33 Resp 18 12/11/16 03:33 BP 117/62 12/11/16 03:33 Pulse Ox 94 L 12/11/16 03:33 Weight - Most Recent: 201 lb I&O - Last 24 hours: Intake & Output 12/10/16 12/11/16 12/11/16 22:59 06:59 14:59 Intake Total 0 Balance 0 Med Orders - Current: Current Medications Acetaminophen (Tylenol) 650 mg PO Q4H PRN PRN Reason: mild pain or fever Benzocaine/Menthol (Dermoplast Pain Relief Prosper) 0 gm TOP ASDIRECTED PRN PRN Reason: Perineal Comfort Measure Last Admin: 12/09/16 13:44 Dose: 1 can Docusate Sodium (Colace) 100 mg PO BID PRN PRN Reason: Constipation Emollient Ointment (Lansinoh Hpa) 0 gm TOP ASDIRECTED PRN PRN Reason: Sore Nipples Last Admin: 12/09/16 22:40 Dose: 1 tube Ibuprofen (Motrin) 600 mg PO Q6H PRN PRN Reason: Mild pain or fever Last Admin: 12/10/16 17:29 Dose: 600 mg Witch Aarti (Tucks) 1 pad TOP ASDIRECTED PRN PRN Reason: Hemorrhoid pain Last Admin: 12/09/16 13:44 Dose: 1 box Discontinued Medications Acetaminophen (Tylenol) 650 mg PO NOW ONE Stop: 12/09/16 07:21 Last Admin: 12/09/16 07:30 Dose: 650 mg Bupivacaine HCl (Sensorcaine-Mpf 0.25%) 10 ml .ROUTE .STK-MED ONE Stop: 12/08/16 12:01 Bupivacaine HCl (Sensorcaine-Mpf 0.25%) 10 ml .ROUTE .STK-MED ONE Stop: 12/08/16 12:01 Cefazolin Sodium (Ancef) Confirm Administered Dose 2 gm .ROUTE .STK-MED ONE Stop: 12/09/16 09:39 Citric Acid/Sodium Citrate (Bicitra Solution) 30 ml PO ONETIME ONE Stop: 12/09/16 08:57 Last Admin: 12/09/16 16:38 Dose: Not Given Ephedrine Sulfate (Ephedrine Sulfate) 5 mg IVPUSH ASDIRECTED PRN PRN Reason: Hypotension Fentanyl (Sublimaze) 100 mcg EPIDUR Q3H PRN PRN Reason: Pain Last Admin: 12/09/16 06:19 Dose: 100 mcg Fentanyl (Sublimaze) Confirm Administered Dose 100 mcg .ROUTE .STK-MED ONE Stop: 12/09/16 09:09 Fentanyl/Bupivacaine HCl (Fentanyl/Bupivacaine/Ns 2 Mcg-0.125% 100 Ml) 100 ml EPIDUR ASDIRECTED JORDEN Last Admin: 12/09/16 09:24 Dose: 100 ml Lactated Ringer's (Ringers, Lactated) 1,000 mls @ 40 mls/hr IV ASDIRECTED JORDEN Last Admin: 12/09/16 03:22 Dose: 40 mls/hr Oxytocin/Lactated Ringer's (Pitocin In Lr 10 Units/1,000 Ml) 10 unit in 1,000 mls @ 12 mls/hr IV TITRATE JORDEN; 2 MUNITS/MIN PRN Reason: Protocol Last Titration: 12/09/16 05:32 Dose: 0 munits/min, 0 mls/hr Oxytocin/Lactated Ringer's (Pitocin In Lr 10 Units/1,000 Ml) 10 unit in 1,000 mls @ 500 mls/hr IV .CONTINUOUS JORDEN Penicillin G Potassium 5 (millunits/ Sodium Chloride) 100 mls @ 55 mls/hr IV ONETIME JORDEN Penicillin G Potassium 2.5 (millunits/ Sodium Chloride) 100 mls @ 55 mls/hr IV Q4H [facility] Last Admin: 12/09/16 04:17 Dose: 100 mls/hr Penicillin G Potassium 2.5 (millunits/ Sodium Chloride) 100 mls @ 100 mls/hr IV Q1H JORDEN Stop: 12/08/16 13:59 Last Admin: 12/08/16 13:17 Dose: 100 mls/hr Ampicillin Sodium 2 gm/ Sodium (Chloride) 100 mls @ 200 mls/hr IV Q6H [facility] Last Admin: 12/09/16 07:14 Dose: 200 mls/hr Gentamicin Sulfate 450 mg/ (Dextrose/Water) 111.25 mls @ 110 mls/hr IV ONETIME ONE Stop: 12/09/16 08:45 Last Admin: 12/09/16 07:50 Dose: 110 mls/hr Clindamycin Phosphate 900 mg/ (Sodium Chloride) 106 mls @ 100 mls/hr IV ONETIME ONE Stop: 12/09/16 09:58 Last Admin: 12/09/16 09:04 Dose: 100 mls/hr Cefazolin Sodium/Dextrose 2 gm (/ Premix) 50 mls @ 100 mls/hr IV ONETIME ONE Stop: 12/09/16 09:25 Last Admin: 12/09/16 16:39 Dose: Not Given Lidocaine HCl (Xylocaine 1%) 10 ml .ROUTE .STK-MED ONE Stop: 12/08/16 14:01 Lidocaine/Epinephrine (Xylocaine-Mpf 2%-Epi 1:200,000) Confirm Administered Dose 20 ml .ROUTE .STK-MED ONE Stop: 12/09/16 09:39 Lidocaine/Epinephrine (Xylocaine-Mpf 1.5% W/Epinephrine 1:200,000) 5 ml .ROUTE .STK-MED ONE Stop: 12/08/16 14:01 Metoclopramide HCl (Reglan) 10 mg IVPUSH ONETIME ONE Stop: 12/09/16 08:57 Last Admin: 12/09/16 16:38 Dose: Not Given Misoprostol (Cytotec) 25 mcg VAG Q4H PRN PRN Reason: cervical ripening Last Admin: 12/08/16 06:03 Dose: 25 mcg Misoprostol (Cytotec) Confirm Administered Dose 25 mcg .ROUTE .STK-MED ONE Stop: 12/07/16 20:51 Last Admin: 12/08/16 01:19 Dose: Not Given Misoprostol (Cytotec) Confirm Administered Dose 25 mcg .ROUTE .STK-MED ONE Stop: 12/08/16 01:03 Last Admin: 12/08/16 01:19 Dose: Not Given Misoprostol (Cytotec) Confirm Administered Dose 25 mcg .ROUTE .STK-MED ONE Stop: 12/08/16 05:56 Last Admin: 12/08/16 06:03 Dose: Not Given Morphine Sulfate (Duramorph Pf) Confirm Administered Dose 10 mg .ROUTE .STK-MED ONE Stop: 12/09/16 09:42 Nalbuphine HCl (Nubain) 10 mg IVPUSH Q2H PRN PRN Reason: Pain (moderate 4-6) Ondansetron HCl (Zofran) 4 mg IVPUSH Q4H PRN PRN Reason: Nausea/Vomiting Ondansetron HCl (Zofran) 4 mg IVPUSH ONETIME PRN PRN Reason: Nausea/Vomiting Last Admin: 12/09/16 07:10 Dose: 4 mg Ondansetron HCl (Zofran) Confirm Administered Dose 4 mg .ROUTE .STK-MED ONE Stop: 12/09/16 09:43 Penicillin G Potassium (Pfizerpen) Confirm Administered Dose 5 millunits .ROUTE .STK-MED ONE Stop: 12/08/16 19:55 Last Admin: 12/09/16 16:39 Dose: Not Given Propofol (Diprivan 20 Ml) Confirm Administered Dose 200 mg .ROUTE .STK-MED ONE Stop: 12/09/16 09:40 Sodium Bicarbonate (Sodium Bicarbonate 8.4%) Confirm Administered Dose 50 meq .ROUTE .STK-MED ONE Stop: 12/09/16 09:39 Sodium Chloride (Saline Flush) 10 ml FLUSH ASDIRECTED PRN PRN Reason: Keep Vein Open Zolpidem Tartrate (Ambien) 5 mg PO BEDTIME PRN PRN Reason: Insomnia Last Admin: 12/08/16 01:19 Dose: 5 mg *Q Meaningful Use (DIS) - VTE *Q VTE Criteria *Q: - Stroke *Q Stroke Criteria *Q: - AMI *Q AMI Criteria *Q:
== END 2016-12-11 11:30 | disposition home or self-care (01) | DRG 774 ==
LOC: JD.OB 11:20 → OBSVTOIN 12-09 11:20 → JD.OB 12-09 11:20
PROVIDERS: ADMIT Obstetrics & Gynecology; ATTEND Obstetrics & Gynecology
PROC: 10E0XZZ Delivery of Products of Conception, External Approach (ICD-10-PCS; principal; 2016-12-09)
PROC: 0KQM0ZZ Repair Perineum Muscle, Open Approach (ICD-10-PCS; 2016-12-09)
PROC: 3E0P7VZ Introduction of Hormone into Female Reproductive, Via Natural or Artificial Opening (ICD-10-PCS; 2016-12-09)
PROC: 10907ZC Drainage of Amniotic Fluid, Therapeutic from Products of Conception, Via Natural or Artificial Opening (ICD-10-PCS; 2016-12-09)
PROC: 00HU33Z Insertion of Infusion Device into Spinal Canal, Percutaneous Approach (ICD-10-PCS; 2016-12-09)
PROC: 3E0R3BZ Introduction of Anesthetic Agent into Spinal Canal, Percutaneous Approach (ICD-10-PCS; 2016-12-09)
DX: O41.1230 Chorioamnionitis, third trimester, not applicable or unspecified (principal); O75.2 Pyrexia during labor, not elsewhere classified; Z37.0 Single live birth; Z3A.38 38 weeks gestation of pregnancy; O75.89 Other specified complications of labor and delivery; L29.8 Other pruritus; O99.824 Streptococcus B carrier state complicating childbirth; O70.1 Second degree perineal laceration during delivery; O76 Abnormality in fetal heart rate and rhythm complicating labor and delivery
CPT/HCPCS: 36415; 51702; 59300; 59409; 83789; 85027; 86850; 86900; 86901; A9270-GY; J0290; J0690; J1580; J2270; J2405; J2540; J2590; J2704; J3010; J7030; J7060; J7120

== ENCOUNTER 2021-11-26 16:30 | Inpatient (IN) | payer BC ==
[2021-11-26] MEDS ORDERED: Sodium Chloride 0.9% 10 ML Syringe FLUSH PRN (16:46)
[2021-11-26] MEDS ORDERED: Ondansetron 4 MG/2 ML SDV IVPUSH PRN (16:46)
[2021-11-26] MEDS ORDERED: Lidocaine 1% 50 ML MDV INJECT SCH (16:46)
[2021-11-26] MEDS ORDERED: Methylergonovine 0.2 MG/1 ML Amp IM PRN (16:48)
[2021-11-26] MEDS ORDERED: Oxytocin/Lactated Ringers 10 UNIT/1,000 ML BAG IV SCH ×2 (17:00)
[2021-11-26] MEDS: Lactated Ringers 1,000 ML IV SCH ×2 (20:56→22:32)
[2021-11-26] MEDS ORDERED: Sodium Chloride 0.9% 10 ML Syringe FLUSH SCH (21:00)
[2021-11-26] MEDS ORDERED: fentaNYL 100 MCG/2 ML SDV EPIDUR PRN (21:52)
[2021-11-26] MEDS ORDERED: Bupivacaine/fentaNYL/NS 100 ML Bag EPIDUR PRN (21:52)
[2021-11-26] MEDS ORDERED: diphenhydrAMINE 50 MG/ML SDV IVPUSH PRN (21:52)
[2021-11-26] MEDS ORDERED: ePHEDrine 50 MG/ML SDV IVPUSH PRN (21:52)
[2021-11-27] MEDS ORDERED: Bupivacaine 0.25% 10 ML SDV ONE
[2021-11-27] MEDS ORDERED: Witch Hazel Medicated Pads 40/Jar TOP PRN (01:35)
[2021-11-27] MEDS ORDERED: Benzocaine/Menthol 20%-0.5% Spray 78 GM Cannister TOP PRN (01:35)
[2021-11-27] MEDS ORDERED: Docusate Sodium 100 MG Cap PO PRN (01:35)
[2021-11-27] MEDS: Ibuprofen 600 MG Tab PO PRN ×2 (09:30→17:56)
[2021-11-27] MEDS: Acetaminophen 325 MG Tab PO PRN ×3 (09:31→22:51)
[2021-11-28] MEDS: Ibuprofen 600 MG Tab PO PRN (00:46)
[2021-11-28] MEDS: Acetaminophen 325 MG Tab PO PRN (06:35)
[2021-11-28 10:22] VITALS: BP 122/73; PULSE 65
== END 2021-11-28 15:15 | disposition home or self-care (01) | DRG 560 ==
LOC: UNDOADMOB 16:30 → JD.OB 16:30 → OBSVTOIN 11-27 00:33 → JD.OB 11-27 00:33
PROVIDERS: ADMIT Obstetrics & Gynecology; ATTEND Obstetrics & Gynecology
PROC: 10E0XZZ Delivery of Products of Conception, External Approach (ICD-10-PCS; principal; 2021-11-27)
PROC: 10907ZC Drainage of Amniotic Fluid, Therapeutic from Products of Conception, Via Natural or Artificial Opening (ICD-10-PCS; 2021-11-27)
PROC: 3E0R3BZ Introduction of Anesthetic Agent into Spinal Canal, Percutaneous Approach (ICD-10-PCS; 2021-11-27)
PROC: 00HU33Z Insertion of Infusion Device into Spinal Canal, Percutaneous Approach (ICD-10-PCS; 2021-11-27)
DX: O26.62 Liver and biliary tract disorders in childbirth (principal); Z3A.38 38 weeks gestation of pregnancy; Z37.0 Single live birth; K83.1 Obstruction of bile duct; L29.9 Pruritus, unspecified; O26.893 Other specified pregnancy related conditions, third trimester; O99.344 Other mental disorders complicating childbirth; F41.8 Other specified anxiety disorders
CPT/HCPCS: 01967; 36415; 59025; 59409; 85025; 86592; 86850; 86900; 86901; A9270-GY; J2405; J2590; J3010; J3490; J7120

== ENCOUNTER 2023-11-10 21:11 | Emergency (ER) | payer BC ==
[2023-11-10] MEDS ORDERED: HYDROmorphone 0.5 MG/0.5 ML Syringe IVPUSH ONE ×2 (22:06→22:15)
[2023-11-10] MEDS ORDERED: Naloxone 0.4 MG/ML SDV IVPUSH PRN ×2 (22:06→22:25)
[2023-11-10 22:11] LABS: BASOPHILS PERCENT AUTO 0.3 % (0.0-1.0); EOSINOPHILS ABSOLUTE AUTO 0.2 K/mm3 (0.0-0.4); EOSINOPHILS PERCENT AUTO 2.3 % (0.0-6.0); HEMATOCRIT 40.4 % (37.0-47.0); HEMOGLOBIN 13.5 gm/dl (12.0-16.0); IMMATURE GRAN ABSOLUTE AUTO 0.02 K/mm3 (0.00-0.05); IMMATURE GRAN PERCENT AUTO 0.3 % (0.0-0.4); LYMPHOCYTES ABSOLUTE AUTO 3.3 K/mm3 (1.0-4.8); MEAN CORPUSCULAR HEMOGLOBIN 29.3 pg (28.0-32.0); MEAN CORPUSCULAR HGB CONC 33.4 g/dl (32.0-36.0); MEAN CORPUSCULAR VOLUME 87.6 fl (83.0-99.0); MEAN PLATELET VOLUME 9.6 fl (9.4-12.3); MONOCYTES ABSOLUTE AUTO 0.3 K/mm3 (0.0-0.8); MONOCYTES PERCENT AUTO 4.1 % (0.0-8.0); NEUTROPHILS ABSOLUTE AUTO 3.3 K/mm3 (1.8-7.7); PLATELET COUNT,PLT 421 K/mm3 (150-400); RED BLOOD CELL COUNT 4.61 M/mm3 (4.10-5.30); WHITE BLOOD CELL COUNT,WBC 7.05 K/mm3 (3.9-11.3)
[2023-11-10] MEDS: Sodium Chloride 0.9% 1,000 ML IV ONE (22:17)
[2023-11-10] MEDS: Ondansetron 4 MG/2 ML SDV IVPUSH ONE (22:17)
[2023-11-10] MEDS: Morphine 4 MG/ML Syringe IVPUSH ONE (22:32)
[2023-11-10 23:00] LABS: A/G RATIO 1.3 (1-2); ALANINE AMINOTRANSFERASE,ALT 9 U/L (14-59); ALBUMIN 4.5 g/dl (3.4-5.0); ALKALINE PHOSPHATASE 52 U/L (46-116); ANION GAP 16.5 (5-15); ASPARTATE AMNIOTRANSFERASE,AST 15 U/L (15-37); BILIRUBIN TOTAL 0.7 mg/dL (0.2-1.0); BLOOD UREA NITROGEN,BUN 11 mg/dL (7-18); CALCIUM 9.6 mg/dL (8.5-10.1); CARBON DIOXIDE,CO2 27 mEq/L (21-32); CHLORIDE,CL 101 mEq/L (98-107); EST CRCL DRUG DOSING (CG) 69.74 mL/min; ESTIMATED GFR 77 mL/min (>60); GLUCOSE RANDOM 94 mg/dL (70-99); POTASSIUM,K 3.5 mEq/L (3.5-5.1); SODIUM,NA 141 mEq/L (136-145)
[2023-11-10 23:06] LABS: TROPONIN I HIGH SENSITIVITY < 4 pg/mL (<=51)
[2023-11-10] MEDS: Iopamidol 612 MG/ML 100 ML Bottle IVPUSH ONE (23:15)
[2023-11-11 01:17] VITALS: BP 104/68; PULSE 56
== END 2023-11-11 01:15 | disposition home or self-care (01) ==
LOC: JD.ED 21:11
DX: K42.9 Umbilical hernia without obstruction or gangrene (principal); I31.39 Other pericardial effusion (noninflammatory); Z88.8 Allergy status to other drugs, medicaments and biological substances; Z79.899 Other long term (current) drug therapy; Z86.16 Personal history of COVID-19
CPT/HCPCS: 36415; 74177; 80053; 83605; 84484; 84703; 85025; 93005; 96361; 96374; 96375; 99285; J2270; J2405; J7030; Q9967

== ENCOUNTER 2024-01-03 10:42 | Emergency (ER) | payer BC ==
[2024-01-03 11:12] VITALS: BP 123/75; PULSE 72
[2024-01-03 12:19] LABS: BASOPHILS PERCENT AUTO 0.3 % (0.0-1.0); EOSINOPHILS ABSOLUTE AUTO 0.1 K/mm3 (0.0-0.4); EOSINOPHILS PERCENT AUTO 1.6 % (0.0-6.0); HEMATOCRIT 33.3 % (37.0-47.0); IMMATURE GRAN ABSOLUTE AUTO 0.03 K/mm3 (0.00-0.05); IMMATURE GRAN PERCENT AUTO 0.4 % (0.0-0.4); LYMPHOCYTES ABSOLUTE AUTO 1.9 K/mm3 (1.0-4.8); LYMPHOCYTES PERCENT AUTO 27.9 % (24.0-44.0); MEAN CORPUSCULAR HGB CONC 33.9 g/dl (32.0-36.0); MEAN CORPUSCULAR VOLUME 88.3 fl (83.0-99.0); MEAN PLATELET VOLUME 9.6 fl (9.4-12.3); MONOCYTES ABSOLUTE AUTO 0.2 K/mm3 (0.0-0.8); MONOCYTES PERCENT AUTO 3.5 % (0.0-8.0); NEUTROPHILS ABSOLUTE AUTO 4.6 K/mm3 (1.8-7.7); NEUTROPHILS PERCENT AUTO 66.3 % (41.0-71.0); RED BLOOD CELL COUNT 3.77 M/mm3 (4.10-5.30); WHITE BLOOD CELL COUNT,WBC 6.91 K/mm3 (3.9-11.3)
[2024-01-03 12:20] LABS: HEMOGLOBIN 11.3 gm/dl (12.0-16.0); PLATELET COUNT,PLT 316 K/mm3 (150-400)
[2024-01-03 13:03] LABS: A/G RATIO 1.2 (1-2); ALBUMIN 3.8 g/dl (3.4-5.0); ANION GAP 11.5 (5-15); BILIRUBIN TOTAL 0.3 mg/dL (0.2-1.0); BUN/CREATININE RATIO 11.4 (14-18); CALCIUM 9.1 mg/dL (8.5-10.1); CREATININE 0.7 mg/dL (0.55-1.02); EST CRCL DRUG DOSING (CG) 108.01 mL/min; POTASSIUM,K 3.5 mEq/L (3.5-5.1); PROTEIN TOTAL,TP 7.1 g/dl (6.4-8.2)
== END 2024-01-03 14:24 | disposition home or self-care (01) ==
LOC: JD.ED 10:42
DX: O20.0 Threatened abortion (principal); Z86.16 Personal history of COVID-19; Z88.5 Allergy status to narcotic agent; Z79.899 Other long term (current) drug therapy; Z3A.09 9 weeks gestation of pregnancy
CPT/HCPCS: 36415; 76817; 76817-26; 80053; 84702; 85025; 86900; 86901; 99283; 99284

== ENCOUNTER 2024-03-11 18:17 | Emergency (ER) | payer BC ==
[2024-03-11 18:46] VITALS: BP 127/76; PULSE 113
[2024-03-11] MEDS: Ondansetron 4 MG/2 ML SDV IVPUSH ONE (19:10)
[2024-03-11] MEDS: Sodium Chloride 0.9% 1,000 ML IV STA (19:10)
[2024-03-11] MEDS: Sodium Chloride 0.9% 10 ML Syringe FLUSH PRN (19:11)
[2024-03-11 19:17] LABS: BASOPHILS PERCENT AUTO 0.1 % (0.0-1.0); EOSINOPHILS PERCENT AUTO 0.1 % (0.0-6.0); HEMATOCRIT 32.1 % (37.0-47.0); HEMOGLOBIN 10.8 gm/dl (12.0-16.0); IMMATURE GRAN ABSOLUTE AUTO 0.03 K/mm3 (0.00-0.05); IMMATURE GRAN PERCENT AUTO 0.4 % (0.0-0.4); LYMPHOCYTES ABSOLUTE AUTO 0.4 K/mm3 (1.0-4.8); LYMPHOCYTES PERCENT AUTO 5.9 % (24.0-44.0); MEAN CORPUSCULAR HEMOGLOBIN 30.8 pg (28.0-32.0); MEAN CORPUSCULAR HGB CONC 33.6 g/dl (32.0-36.0); MEAN CORPUSCULAR VOLUME 91.5 fl (83.0-99.0); MEAN PLATELET VOLUME 9.5 fl (9.4-12.3); MONOCYTES ABSOLUTE AUTO 0.3 K/mm3 (0.0-0.8); MONOCYTES PERCENT AUTO 4.6 % (0.0-8.0); NEUTROPHILS ABSOLUTE AUTO 6.1 K/mm3 (1.8-7.7); NEUTROPHILS PERCENT AUTO 88.9 % (41.0-71.0); PLATELET COUNT,PLT 226 K/mm3 (150-400); RED BLOOD CELL COUNT 3.51 M/mm3 (4.10-5.30)
[2024-03-11 19:52] LABS: A/G RATIO 0.9 (1-2); ALBUMIN 3.2 g/dl (3.4-5.0); ANION GAP 18.4 (5-15); BILIRUBIN TOTAL 0.5 mg/dL (0.2-1.0); BUN/CREATININE RATIO 8.8 (14-18); C-REACTIVE PROTEIN 3.29 mg/dL (<0.30); CALCIUM 8.7 mg/dL (8.5-10.1); CREATININE 0.8 mg/dL (0.55-1.02); EST CRCL DRUG DOSING (CG) 94.51 mL/min; POTASSIUM,K 3.4 mEq/L (3.5-5.1); PROTEIN TOTAL,TP 6.8 g/dl (6.4-8.2)
== END 2024-03-11 20:57 | disposition home or self-care (01) ==
LOC: JD.ED 18:17
DX: O21.9 Vomiting of pregnancy, unspecified (principal); O98.512 Other viral diseases complicating pregnancy, second trimester; B34.9 Viral infection, unspecified; Z86.16 Personal history of COVID-19; Z87.891 Personal history of nicotine dependence; Z88.5 Allergy status to narcotic agent; Z79.899 Other long term (current) drug therapy; Z3A.19 19 weeks gestation of pregnancy
CPT/HCPCS: 36415; 80053; 85025; 86140; 87428; 96361; 96374; 99284; J2405; J7030

== ENCOUNTER 2024-08-01 02:03 | Inpatient (IN) | payer BC ==
[2024-08-01] MEDS ORDERED: Bupivacaine 0.25% 10 ML SDV ONE (07:00)
[2024-08-01] MEDS ORDERED: Nalbuphine 10 MG/1 ML Vial IVPUSH PRN (19:14)
[2024-08-01] MEDS ORDERED: Lidocaine 1% 50 ML MDV INJECT PRN (19:14)
[2024-08-01] MEDS ORDERED: Acetaminophen 325 MG Tab PO PRN (19:14)
[2024-08-01] MEDS ORDERED: Sodium Chloride 0.9% 10 ML Syringe FLUSH PRN (19:14)
[2024-08-01] MEDS ORDERED: Calcium Carbonate 500 MG Tab.Chew PO PRN (19:14)
[2024-08-01 19:41] LABS: BASOPHILS PERCENT AUTO 0.1 % (0.0-1.0); EOSINOPHILS ABSOLUTE AUTO 0.1 K/mm3 (0.0-0.4); EOSINOPHILS PERCENT AUTO 1.1 % (0.0-6.0); HEMATOCRIT 28.5 % (37.0-47.0); HEMOGLOBIN 9.2 gm/dl (12.0-16.0); IMMATURE GRAN ABSOLUTE AUTO 0.06 K/mm3 (0.00-0.05); IMMATURE GRAN PERCENT AUTO 0.8 % (0.0-0.4); LYMPHOCYTES ABSOLUTE AUTO 1.5 K/mm3 (1.0-4.8); LYMPHOCYTES PERCENT AUTO 19.4 % (24.0-44.0); MEAN CORPUSCULAR HEMOGLOBIN 27.9 pg (28.0-32.0); MEAN CORPUSCULAR HGB CONC 32.3 g/dl (32.0-36.0); MEAN CORPUSCULAR VOLUME 86.4 fl (83.0-99.0); MEAN PLATELET VOLUME 10.6 fl (9.4-12.3); MONOCYTES ABSOLUTE AUTO 0.4 K/mm3 (0.0-0.8); MONOCYTES PERCENT AUTO 5.9 % (0.0-8.0); NEUTROPHILS ABSOLUTE AUTO 5.4 K/mm3 (1.8-7.7); NEUTROPHILS PERCENT AUTO 72.7 % (41.0-71.0); NRBC ABSOLUTE 0.04 (0.00-0.02); NRBC PERCENT 0.5 % (0.0-0.2); PLATELET COUNT,PLT 245 K/mm3 (150-400); WHITE BLOOD CELL COUNT,WBC 7.46 K/mm3 (3.9-11.3)
[2024-08-01] MEDS: Lactated Ringers 1,000 ML IV SCH (20:06)
[2024-08-01] MEDS: Oxytocin/0.9 % Sodium Chloride 30 UNIT/500 ML BAG IV SCH (20:06)
[2024-08-01] MEDS: Ondansetron 4 MG/2 ML SDV IVPUSH PRN (22:35)
[2024-08-01] MEDS ORDERED: diphenhydrAMINE 50 MG/ML SDV IVPUSH PRN (22:45)
[2024-08-01] MEDS ORDERED: ePHEDrine 50 MG/ML SDV IVPUSH PRN (22:45)
[2024-08-01] MEDS: Ropivacaine 200 MG in Premix Bag 1 BAG EPIDUR PRN (22:51)
[2024-08-02] MEDS: Metoclopramide 10 MG/2 ML SDV IVPUSH ONE (01:29)
[2024-08-02] MEDS: Methylergonovine 0.2 MG/1 ML Amp IM STA (02:40)
[2024-08-02] MEDS: Misoprostol 200 MCG Tab PO STA (02:42)
[2024-08-02] MEDS: Oxytocin/0.9 % Sodium Chloride 30 UNIT/500 ML BAG IV SCH (02:46)
[2024-08-02] MEDS ORDERED: Docusate Sodium 100 MG Cap PO PRN (04:23)
[2024-08-02] MEDS: Witch Hazel Medicated Pads 40/Jar TOP PRN (04:40)
[2024-08-02] MEDS: Benzocaine/Menthol 20%-0.5% Spray 78 GM Cannister TOP PRN (04:41)
[2024-08-02] MEDS: Ibuprofen 600 MG Tab PO SCH (04:42)
[2024-08-02] MEDS: Tranexamic Acid 1,000 MG/10 ML Vial ONE (05:32)
[2024-08-02] MEDS: Acetaminophen 325 MG Tab PO PRN (08:03)
[2024-08-03 08:54] VITALS: BP 123/73; PULSE 70
== END 2024-08-03 10:30 | disposition home or self-care (01) | DRG 560 ==
LOC: JD.OB 02:03 → OBSVTOIN 08-02 02:03 → JD.OB 08-02 02:04
PROVIDERS: ADMIT Obstetrics & Gynecology; ATTEND Obstetrics & Gynecology
PROC: 3E033VJ Introduction of Other Hormone into Peripheral Vein, Percutaneous Approach (ICD-10-PCS; principal; 2024-08-02)
PROC: 10E0XZZ Delivery of Products of Conception, External Approach (ICD-10-PCS; principal; 2024-08-02)
PROC: 3E0R3BZ Introduction of Anesthetic Agent into Spinal Canal, Percutaneous Approach (ICD-10-PCS; principal; 2024-08-02)
PROC: 10907ZC Drainage of Amniotic Fluid, Therapeutic from Products of Conception, Via Natural or Artificial Opening (ICD-10-PCS; principal; 2024-08-02)
DX: O99.02 Anemia complicating childbirth (principal); Z3A.39 39 weeks gestation of pregnancy; Z37.0 Single live birth; Z88.8 Allergy status to other drugs, medicaments and biological substances; O99.214 Obesity complicating childbirth; Z86.16 Personal history of COVID-19; Z79.899 Other long term (current) drug therapy; Z87.891 Personal history of nicotine dependence
CPT/HCPCS: 36415; 51701; 59025; 59409; 85025; 86592; 86850; 86900; 86901; A9270-GY; J0665; J2210; J2405; J2765; J2795; J7120; J7999